=== PATIENT | female | born 1985 | race Caucasian/White ===

== ENCOUNTER 2016-09-09 23:52 | Emergency (ER) | payer BC ==
[~2016-09-09 23:52] MED LIST: ALBU8.5H3 INH; ALPR0.5T PO; AZIT250T6 PO; CITA10TA8 PO; HYDR-971 PO; LEVO150T PO; METO25TA9 PO; PRE NATAL; PROG100C7 PO
--- NOTE | 2016-09-10 00:03 | ED.ADGEN ---
Past History Past Medical History: Anxiety, Asthma, Fibromyalgia, Hyperthyroid, Other Past Surgical History: Other Alcohol Use: None Drug Use: None Adult General Chief Complaint Chief Complaint ".. I get Migraines.. but I ve had this one for two days.... and it has never really gone away...".." and I'm having a lot of neck and shoulder spasms from my fiber myalgia..." HPI HPI Patient is a 30 year old female who presents with above hx and complaints of increased complains of her baseline fibromyalgia muscle spasm. Patient complains that her migraine headache is been present for the past 2 days. Onset of headache with similar to prior migraines. Severity of the migraine is pain is similar to prior migraines, however it has been present for the past 2 days.. There is some relief of the headache with rest and a dark room. Patient does have some photophobia. Patient denies any trauma. Patient denies any travel. Patient denies any ill contacts. Patient denies any drug use. Patient denies any immunosuppression. Patient denies any fever or chills. Patient usually is able to control her migraine exacerbations with Tylenol or ibuprofen. If migraines are persistent muscle relaxants usually work. However patient states she used [id number] Tylenol ibuprofen and did take a muscle relaxant at home with minimal improvement. Patient in the past has successfully used trigger point injections at pain centers control the migraines frequency of exacerbations. Review of Systems Review of Systems Constitutional: Denies fever or chills [] Eyes: Denies change in visual acuity, redness, or eye pain [] HENT: Denies nasal congestion or sore throat [] Respiratory: Denies cough or shortness of breath [] Cardiovascular: No additional information not addressed in HPI [] GI: Denies abdominal pain, nausea, vomiting, bloody stools or diarrhea [] : Denies dysuria or hematuria [] Musculoskeletal: Denies back pain or joint pain [. Complaints of increase in fibromyalgia complaints Integument: Denies rash or skin lesions [] Neurologic: Complains of headache, denies focal weakness or sensory changes [] Endocrine: Denies polyuria or polydipsia [] Family History Family History Noncontributory Current Medications Current Medications Current Medications Medications (Trade) Dose Ordered Sig/[place] Start Time Stop Time Status Last Admin Dose Admin Diphenhydramine HCl (Benadryl) 50 mg 1X ONCE 09/10/16 01:00 09/10/16 01:01 DC 09/10/16 00:58 50 MG Diphenhydramine HCl 50 mg 50 mg STK-MED ONCE 09/10/16 00:46 09/10/16 00:57 DC Lactated Ringer's 1,000 ml @ As Directed STK-MED ONCE 09/10/16 00:46 09/10/16 00:57 DC Lactated Ringer's (Iv Lactated Ringers) 1,000 ml @ 1,000 mls/hr ONCE ONCE 09/10/16 00:56 09/10/16 01:55 DC 09/10/16 00:56 1,000 MLS/HR Morphine Sulfate (Morphine 10mg Syringe) 10 mg STK-MED ONCE 09/10/16 00:45 09/10/16 00:56 DC Ondansetron HCl (Zofran) 4 mg STK-MED ONCE 09/10/16 00:47 09/10/16 00:57 DC Ondansetron HCl 8 mg 8 mg 1X ONCE 09/10/16 01:00 09/10/16 01:01 DC 09/10/16 00:57 8 MG Orphenadrine Citrate 60 mg 60 mg 1X ONCE 09/10/16 01:00 09/10/16 01:01 DC 09/10/16 01:00 60 MG Sodium Chloride (Iv Sodium Chloride 0.9% 50ml) 50 ml @ As Directed STK-MED ONCE 09/10/16 00:46 09/10/16 00:57 DC Sumatriptan Succinate (Imitrex) 6 mg 1X ONCE 09/10/16 02:15 09/10/16 02:44 DC Valproic Acid (Depacon) 500 mg STK-MED ONCE 09/10/16 00:46 09/10/16 00:57 DC Valproic Acid/ Sodium Chloride (Depacon/Iv Sodium Chloride 0.9% 50ml) 55 ml @ 55 mls/hr Q8HRS 09/10/16 01:00 09/10/16 02:44 DC 09/10/16 01:00 55 MLS/HR Allergies Allergies Allergies Coded Allergies Type Severity Reaction Last Updated Verified Penicillins Allergy Unknown RASH 03/09/14 No iodine Allergy Unknown 8/21/16 Yes Physical Exam Physical Exam Constitutional: Moderate distress, non-toxic appearance. [] HENT: Normocephalic, atraumatic, bilateral external ears normal, oropharynx moist, no oral exudates, nose normal. []TMs clear Eyes: PERRLA, EOMI, conjunctiva normal, no discharge. Mild photophobia. Fundus benign. Neck: Normal range of motion, PT is some muscle tenderness, supple, no stridor. No midline tenderness Cardiovascular:Heart rate regular rhythm, no murmur [] Lungs & Thorax: Bilateral breath sounds equal at apexes on auscultation [] Abdomen: Bowel sounds normal, soft, no tenderness, no masses, no pulsatile masses. [] Skin: Warm, dry, no erythema, no rash. [] Back: No tenderness, no CVA tenderness. [] Extremities: No tenderness, no cyanosis, no clubbing, ROM intact, no edema. [] Neurologic: Alert and oriented X 3, normal motor function, normal sensory function, . DTRs +2 at brachial and patella. Air-conduction more than bone conduction. Some lateralization to the right. No Romberg. No drift. Distal vibratory 128 intact. Psychologic: Affect anxious, judgement normal, mood normal. [] Current Patient Data Vital Signs Vital Signs Date Time Temp Pulse Resp B/P Pulse Ox O2 Delivery O2 Flow Rate FiO2 09/10/16 00:30 20 100 Room Air 09/10/16 00:10 97.7 80 Lab Results Laboratory Tests Test 09/10/16 00:30 09/10/16 00:32 09/10/16 00:40 Urine Collection Type Unknown Urine Color Yellow Urine Clarity Hazy Urine pH 6.0 Urine Specific [place] 1.025 Urine Protein Neg (NEG-TRACE) Urine Glucose (UA) Negmg/dL (NEG) Urine Ketones (Stick) Negmg/dL (NEG) Urine Blood Trace (NEG) Urine Nitrite Neg (NEG) Urine Bilirubin Neg (NEG) Urine Urobilinogen Dipstick 0.2mg/dL (0.2 mg/dL) Urine Leukocyte Esterase Neg (NEG) Urine RBC 1-2/HPF (0-2) Urine WBC Occ/HPF (0-4) Urine Squamous Epithelial Cells Occ/LPF Urine Bacteria Few/HPF (0-FEW) Urine Mucus Slight/LPF Urine Opiates Screen Pos (NEG) Urine Methadone Screen Neg (NEG) Urine Barbiturates Neg (NEG) Urine Phencyclidine Screen Neg (NEG) Urine Amphetamine/Methamphetamine Neg (NEG) Urine Benzodiazepines Screen Neg (NEG) Urine Cocaine Screen Neg (NEG) Urine Cannabinoids Screen Neg (NEG) Urine Ethyl Alcohol Neg (NEG) POC Urine HCG, Qualitative hcg negative (Negative) White Blood Count 8.5x10^3/uL (4.0-11.0) Red Blood Count 4.75x10^6/uL (3.50-5.40) Hemoglobin 14.1g/dL (12.0-15.5) Hematocrit 42.7% (36.0-47.0) Mean Corpuscular Volume 90fL (79-100) Mean Corpuscular Hemoglobin 30pg (25-35) Mean Corpuscular Hemoglobin Concent 33g/dL (31-37) Red Cell Distribution Width 12.9% (11.5-14.5) Platelet Count 277x10^3/uL (140-400) Neutrophils (%) (Auto) 44% (31-73) Lymphocytes (%) (Auto) 46% (24-48) Monocytes (%) (Auto) 7% (0-9) Eosinophils (%) (Auto) 3% (0-3) Basophils (%) (Auto) 1% (0-3) Neutrophils # (Auto) 3.7x10^3uL (1.8-7.7) Lymphocytes # (Auto) 3.9x10^3/uL (1.0-4.8) Monocytes # (Auto) 0.6x10^3/uL (0.0-1.1) Eosinophils # (Auto) 0.2x10^3/uL (0.0-0.7) Basophils # (Auto) 0.1x10^3/uL (0.0-0.2) Erythrocyte Sedimentation Rate 44 (0-25) H Prothrombin Time 9.8SEC (9.4-11.4) Prothrombin Time INR 1.0 (0.9-1.1) PTT 25SEC (23-33) Sodium Level 142mmol/L (136-145) Potassium Level 3.6mmol/L (3.5-5.1) Chloride Level 103mmol/L (98-107) Carbon Dioxide Level 29mmol/L (21-32) Anion Gap 10 (6-14) Blood Urea Nitrogen 12mg/dL (7-20) Creatinine 0.8mg/dL (0.6-1.0) Estimated GFR (Cockcroft-Gault) 83.1 Glucose Level 115mg/dL (70-99) H Calcium Level 8.8mg/dL (8.5-10.1) Magnesium Level 2.0mg/dL (1.8-2.4) Total Bilirubin 0.3mg/dL (0.2-1.0) Direct Bilirubin 0.1mg/dL (0.0-0.2) Aspartate Amino Transferase (AST) 13U/L (15-37) L Alanine Aminotransferase (ALT) 23U/L (14-59) Alkaline Phosphatase 99U/L (46-116) Creatine Kinase 125U/L (26-192) Creatine Kinase MB (Mass) 1.0ng/mL (0.0-3.6) Creatine Kinase MB Relative Index 0.8% (0-4) Troponin I Quantitative < 0.017ng/mL (0-0.055) C-Reactive Protein 4.7mg/L (0-3.3) H Total Protein 8.0g/dL (6.4-8.2) Albumin 3.5g/dL (3.4-5.0) EKG EKG [] Radiology/Procedures Radiology/Procedures My interpretation of CT head shows no shift, mass, edema, bleed, or fracture. No findings of sinusitis. See formal report when available [] Course & Med Decision Making Course & Med Decision Making Pertinent Labs and Imaging studies reviewed. (See chart for details) Patient follow-up primary care. Patient to consider follow-up with pain center and possible repeat series of trigger point injections. Tylenol ibuprofen for pain. May take Vicoprofen for marked discomfort. Take Zofran 8 mg up 4 times a day for nausea and vomiting. Take Imitrex 100 mg at the beginning of a headache in the morning. Do not take more than 200 mg in a 24-hour period. Patient may take Flexeril 5 mg up 3 times a day for muscle spasms and tension. Must follow- up primary care. [] Final Impression Final Impression 1. Hx. of Migraine Headaches[] 2. History of fibromyalgia 3. History of trigeminal neuralgia Problems: Dragon Disclaimer Dragon Disclaimer This electronic medical record was generated, in whole or in part, using a voice recognition dictation system. OSMAN RODRIGUEZ MD Sep 10, 2016 00:03
[2016-09-10 00:10] VITALS: BP 159/105
[2016-09-10] MEDS ORDERED: MORPHINE SULFATE 10 MG/ML SYRINGE. SQ ONE (00:30)
[2016-09-10] MEDS ORDERED: IV RINGERS SOLUTION,LACTATED 1,000 ML IV SCH (00:30)
[2016-09-10] MEDS ORDERED: MORPHINE SULFATE 10 MG/ML SYRINGE. ONE (00:45)
[2016-09-10] MEDS ORDERED: IV NORMAL SALINE 50ML 50 ML ONE (00:46)
[2016-09-10] MEDS ORDERED: IV RINGERS SOLUTION,LACTATED 1,000 ML IV ONE ×2 (00:46→00:56)
[2016-09-10] MEDS ORDERED: VALPROATE SODIUM 500 MG/5 ML VIAL IV ONE (00:46)
[2016-09-10] MEDS ORDERED: DIPHENHYDRAMINE 50 MG/ML VIAL ONE (00:46)
[2016-09-10] MEDS ORDERED: ONDANSETRON PF 4 MG/2 ML VIAL. ONE (00:47)
[2016-09-10 00:55] LABS: BASO # 0.1 x10^3/uL (0.0-0.2); BASO % 1 % (0-3); EOS # 0.2 x10^3/uL (0.0-0.7); EOS % 3 % (0-3); HEMATOCRIT 42.7 % (36.0-47.0); HEMOGLOBIN 14.1 g/dL (12.0-15.5); LYMPH # 3.9 x10^3/uL (1.0-4.8); LYMPH % 46 % (24-48); MEAN CORPUSCULAR HEMOGLOBIN 30 pg (25-35); MEAN CORPUSCULAR HGB CONC 33 g/dL (31-37); MEAN CORPUSCULAR VOLUME 90 fL (79-100); MONO # 0.6 x10^3/uL (0.0-1.1); MONO % 7 % (0-9); NEUT # 3.7 x10^3uL (1.8-7.7); NEUT % 44 % (31-73); PLATELET COUNT 277 x10^3/uL (140-400); RED BLOOD COUNT 4.75 x10^6/uL (3.50-5.40); RED CELL DISTRIBUTION WIDTH 12.9 % (11.5-14.5); WHITE BLOOD COUNT 8.5 x10^3/uL (4.0-11.0)
[2016-09-10] MEDS ORDERED: DIPHENHYDRAMINE 50 MG/ML VIAL IVP ONE (01:00)
[2016-09-10] MEDS ORDERED: VALPROATE SODIUM 500 MG in IV NORMAL SALINE 50ML 50 ML IV SCH (01:00)
[2016-09-10] MEDS ORDERED: ORPHENADRINE CITRATE 60 MG/2 ML VIAL. IM ONE (01:00)
[2016-09-10] MEDS ORDERED: ONDANSETRON PF 4 MG/2 ML VIAL. IV ONE (01:00)
--- NOTE | 2016-09-10 01:00 | RAD ---
PROCEDURE CT head without contrast 09/10/2016. HISTORY Severe headache and right-sided blurry vision. TECHNIQUE Noncontrast images were performed. Exposure: One or more of the following individualized dose reduction techniques were utilized for this exam: 1. Automated exposure control. 2. Adjustment of the mA and/or kV according to patient size. 3. Use of iterative reconstruction technique. COMPARISON FINDINGS There is no apparent intracranial mass, hemorrhage or abnormal extra-axial fluid collection. No area of abnormal density is identified. The ventricles and basilar cisterns are normally positioned. No orbital abnormality is seen. The sinuses and mastoid air cells are clear. IMPRESSION No evidence of acute abnormality. Electronically signed by: Myron Vang (Sep 10, 2016 00:59:08)
[2016-09-10 01:08] LABS: BARBITURATES NEG (NEG); BENZODIAZEPINES NEG (NEG); CANNABINOIDS NEG (NEG); COCAINE NEG (NEG); METHADONE NEG (NEG); OPIATES POS (NEG); PHENCYCLIDINE NEG (NEG)
[2016-09-10 01:09] LABS: AMPHETAMINE/METHAMPHETAMINE NEG (NEG)
[2016-09-10 01:11] LABS: BILIRUBIN,URINE NEG (NEG); CLARITY,URINE HAZY; COLOR,URINE YELLOW; GLUCOSE,URINE NEG (NEG)
[2016-09-10 01:12] LABS: BACTERIA,URINE FEW /HPF (0-FEW); NITRITE,URINE NEG (NEG); SQUAMOUS EPITHELIAL CELL,UR OCC /LPF; UROBILINOGEN,URINE 0.2 mg/dL (0.2 mg/dL); WBC,URINE OCC /HPF (0-4)
[2016-09-10 01:16] LABS: ALBUMIN 3.5 g/dL (3.4-5.0); C REACTIVE PROTEIN 4.7 mg/L (0-3.3); CALCIUM 8.8 mg/dL (8.5-10.1); CREATININE 0.8 mg/dL (0.6-1.0); DIRECT BILIRUBIN 0.1 mg/dL (0.0-0.2); GFR 83.1; POTASSIUM 3.6 mmol/L (3.5-5.1); TOTAL BILIRUBIN 0.3 mg/dL (0.2-1.0)
[2016-09-10 02:00] LABS: SEDIMENTATION RATE 44 (0-25)
[2016-09-10] MEDS ORDERED: ONDA8TAB12 PO (02:04)
[2016-09-10] MEDS ORDERED: HYDR-79 PO (02:04)
[2016-09-10] MEDS ORDERED: SUMA100T3 PO (02:04)
[2016-09-10] MEDS ORDERED: CYCL5TAB PO (02:05)
[2016-09-10] MEDS ORDERED: SUMATRIPTAN 6 MG/0.5 ML VIAL. SQ ONE (02:15)
== END 2016-09-10 02:40 | disposition home or self-care (01) ==
LOC: ER 23:52
DX: R51 Headache (principal); G43.909 Migraine, unspecified, not intractable, without status migrainosus; M79.7 Fibromyalgia; G50.0 Trigeminal neuralgia; E03.9 Hypothyroidism, unspecified; J45.909 Unspecified asthma, uncomplicated; Z88.0 Allergy status to penicillin; Z91.041 Radiographic dye allergy status
CPT/HCPCS: 36415; 70450; 80048; 80076; 80305; 81001; 82553; 83735; 84443; 84484; 84703; 85027; 85610; 85651; 85730; 86140; 96365; 96372; 96375; 99285; J1200; J2270; J2360; J2405; J3490; J7120; 81025; G0481

== ENCOUNTER 2016-10-21 20:30 | Emergency (ER) | payer BC ==
[~2016-10-21] VITALS: Ht 170.2 cm; Wt 130.6 kg
[~2016-10-21 20:30] MED LIST changes: -ALBU8.5H3 INH; +ALBU8.5H8 INH; +CYCL5TAB PO; +HYDR-79 PO; +ONDA8TAB12 PO; +PROG100C15 PO; -PROG100C7 PO; +SUMA100T3 PO
--- NOTE | 2016-10-21 20:43 | ED.ADGEN ---
Past History Past Medical History: Anxiety, Asthma, Hypothyroid, Migraines, Other Past Surgical History: Other Alcohol Use: Occasionally Drug Use: None Adult General Chief Complaint Chief Complaint Productive cough HPI HPI Patient is a 31 year old female who presents with productive cough. She states it started about 2-3 days ago she feel short of breath and has a cough is bringing up green-black sputum. She states she's been having fevers and chills at home. She's tried her albuterol inhaler yesterday and today only once though. She does have a history of asthma. She does Vape. Review of Systems Review of Systems Constitutional: Denies fever or chills [] Eyes: Denies change in visual acuity, redness, or eye pain [] HENT: Denies nasal congestion or sore throat [] Respiratory: Positive for cough and shortness of breath. Cardiovascular: No additional information not addressed in HPI [] GI: Denies abdominal pain, nausea, vomiting, bloody stools or diarrhea [] : Denies dysuria or hematuria [] Musculoskeletal: Denies back pain or joint pain [] Integument: Denies rash or skin lesions [] Neurologic: Denies headache, focal weakness or sensory changes [] Endocrine: Denies polyuria or polydipsia [] Current Medications Current Medications Current Medications Medications (Trade) Dose Ordered Sig/[facility] Start Time Stop Time Status Last Admin Dose Admin Acetaminophen/ Codeine Phosphate (Tylenol #3) 1 tab 1X ONCE 10/21/16 23:00 10/21/16 23:01 UNV Albuterol/ Ipratropium (Duoneb) 3 ml 1X ONCE 10/21/16 21:15 10/21/16 21:16 DC 10/21/16 21:13 3 ML Azithromycin (Zithromax) 500 mg 1X ONCE 10/21/16 23:00 10/21/16 23:01 UNV Sodium Chloride 1,000 ml @ 1,000 mls/hr 1X ONCE 10/21/16 21:00 10/21/16 21:59 DC 10/21/16 21:37 1,000 MLS/HR Allergies Allergies Allergies Coded Allergies Type Severity Reaction Last Updated Verified Penicillins Allergy Unknown RASH 03/09/14 No iodine Allergy Unknown 01/09/16 Yes Physical Exam Physical Exam Constitutional: Well developed, well nourished, no acute distress, non-toxic appearance. [] HENT: Normocephalic, atraumatic, bilateral external ears normal, oropharynx moist, no oral exudates, nose normal. [] Eyes: PERRLA, EOMI, conjunctiva normal, no discharge. [] Neck: Normal range of motion, no tenderness, supple, no stridor. [] Cardiovascular:Heart rate regular rhythm, no murmur [] Lungs & Thorax: Decreased breath sounds at the bases with mild expiratory wheezes Abdomen: Bowel sounds normal, soft, no tenderness, no masses, no pulsatile masses. [] Skin: Warm, dry, no erythema, no rash. [] Back: No tenderness, no CVA tenderness. [] Extremities: No tenderness, no cyanosis, no clubbing, ROM intact, no edema. [] Neurologic: Alert and oriented X 3, normal motor function, normal sensory function, no focal deficits noted. [] Psychologic: Affect normal, judgement normal, mood normal. [] Current Patient Data Vital Signs Vital Signs Date Time Temp Pulse Resp B/P (MAP) Pulse Ox O2 Delivery O2 Flow Rate FiO2 10/21/16 21:14 96 Room Air 10/21/16 20:45 98.8 120 18 Lab Results Laboratory Tests Test 10/21/16 21:07 10/21/16 21:35 POC Urine HCG, Qualitative hcg negative (Negative) White Blood Count 5.8 x10^3/uL (4.0-11.0) Red Blood Count 4.30 x10^6/uL (3.50-5.40) Hemoglobin 12.8 g/dL (12.0-15.5) Hematocrit 37.4 % (36.0-47.0) Mean Corpuscular Volume 87 fL (79-100) Mean Corpuscular Hemoglobin 30 pg (25-35) Mean Corpuscular Hemoglobin Concent 34 g/dL (31-37) Red Cell Distribution Width 13.3 % (11.5-14.5) Platelet Count 183 x10^3/uL (140-400) Neutrophils (%) (Auto) 44 % (31-73) Lymphocytes (%) (Auto) 41 % (24-48) Monocytes (%) (Auto) 14 % (0-9) H Eosinophils (%) (Auto) 1 % (0-3) Basophils (%) (Auto) 1 % (0-3) Neutrophils # (Auto) 2.6 x10^3uL (1.8-7.7) Lymphocytes # (Auto) 2.4 x10^3/uL (1.0-4.8) Monocytes # (Auto) 0.8 x10^3/uL (0.0-1.1) Eosinophils # (Auto) 0.0 x10^3/uL (0.0-0.7) Basophils # (Auto) 0.0 x10^3/uL (0.0-0.2) Sodium Level 140 mmol/L (136-145) Potassium Level 3.4 mmol/L (3.5-5.1) L Chloride Level 105 mmol/L (98-107) Carbon Dioxide Level 26 mmol/L (21-32) Anion Gap 9 (6-14) Blood Urea Nitrogen 17 mg/dL (7-20) Creatinine 1.0 mg/dL (0.6-1.0) Estimated GFR (Cockcroft-Gault) 63.9 BUN/Creatinine Ratio 17 (6-20) Glucose Level 109 mg/dL (70-99) H Calcium Level 8.2 mg/dL (8.5-10.1) L Total Bilirubin 0.2 mg/dL (0.2-1.0) Aspartate Amino Transferase (AST) 15 U/L (15-37) Alanine Aminotransferase (ALT) 21 U/L (14-59) Alkaline Phosphatase 83 U/L (46-116) Total Protein 7.4 g/dL (6.4-8.2) Albumin 3.2 g/dL (3.4-5.0) L Albumin/Globulin Ratio 0.8 (1.0-1.7) L EKG EKG [] Radiology/Procedures Radiology/Procedures Two-view chest x-ray did not show any focal consolidations, bony abnormalities, pneumothorax, as interpreted by me. Course & Med Decision Making Course & Med Decision Making Pertinent Labs and Imaging studies reviewed. (See chart for details) She was tachycardic upon arrival her labs are nonacute. Her tachycardia improved with IV fluids. Chest x-ray negative. This is likely bronchitis or viral infection. Will discharge with azithromycin Z-Andrew, Tylenol 3's when necessary cough. Return precautions given patient is agreeable to the plan and being discharged in stable condition this time. Final Impression Final Impression Bronchitis Problems: Dragon Disclaimer Dragon Disclaimer This electronic medical record was generated, in whole or in part, using a voice recognition dictation system. DIANNA MATOS MD Oct 21, 2016 20:42
[2016-10-21 20:45] VITALS: BP 151/83
[2016-10-21] MEDS ORDERED: IV NORMAL SALINE 1,000ML 1,000 ML IV ONE (21:00)
[2016-10-21] MEDS ORDERED: IPRATRPIUM/ALBUTEROL 0.5/2.5MG 3 ML NEBU. NEB ONE (21:15)
[2016-10-21 21:59] LABS: BASO % 1 % (0-3); EOS % 1 % (0-3); HEMATOCRIT 37.4 % (36.0-47.0); HEMOGLOBIN 12.8 g/dL (12.0-15.5); LYMPH # 2.4 x10^3/uL (1.0-4.8); LYMPH % 41 % (24-48); MEAN CORPUSCULAR HEMOGLOBIN 30 pg (25-35); MEAN CORPUSCULAR HGB CONC 34 g/dL (31-37); MEAN CORPUSCULAR VOLUME 87 fL (79-100); MONO # 0.8 x10^3/uL (0.0-1.1); MONO % 14 % (0-9); NEUT # 2.6 x10^3uL (1.8-7.7); NEUT % 44 % (31-73); PLATELET COUNT 183 x10^3/uL (140-400); RED CELL DISTRIBUTION WIDTH 13.3 % (11.5-14.5); WHITE BLOOD COUNT 5.8 x10^3/uL (4.0-11.0)
[2016-10-21 22:11] LABS: ALBUMIN 3.2 g/dL (3.4-5.0); ALBUMIN/GLOBULIN RATIO 0.8 (1.0-1.7); CALCIUM 8.2 mg/dL (8.5-10.1); GFR 63.9; POTASSIUM 3.4 mmol/L (3.5-5.1); TOTAL BILIRUBIN 0.2 mg/dL (0.2-1.0); TOTAL PROTEIN 7.4 g/dL (6.4-8.2)
[2016-10-21] MEDS ORDERED: AZIT250T6 PO (22:48)
[2016-10-21] MEDS ORDERED: ACET-704 PO (22:48)
[2016-10-21] MEDS ORDERED: PRED50TA PO (22:58)
[2016-10-21] MEDS ORDERED: AZITHROMYCIN 250 MG TABLET. PO ONE (23:00)
[2016-10-21] MEDS ORDERED: ACETAMINOPHEN/CODEINE 300/30MG TABLET PO ONE (23:00)
[2016-10-21] MEDS ORDERED: ACETAMINOPHEN/CODEINE 300/30MG 4TABLET STARTPACK. PO ONE (23:00)
[2016-10-21] MEDS ORDERED: predniSONE 10 MG TABLET PO ONE (23:00)
[2016-10-21] MEDS ORDERED: predniSONE 20 MG TABLET ONE (23:03)
--- NOTE | 2016-10-22 07:39 | RAD ---
Indication: Cough and shortness of air. Time of exam 2143 hours. No prior studies are available for comparison. The heart size is normal. There is patchy airspace infiltrate identified in the left upper lobe suggestive of pneumonia. No other infiltrates are detected. No effusion or pneumothorax is seen. Impression: Patchy left upper lobe pneumonia.
== END 2016-10-21 23:10 | disposition home or self-care (01) ==
LOC: ER 20:30
DX: J40 Bronchitis, not specified as acute or chronic (principal); E03.9 Hypothyroidism, unspecified; J45.909 Unspecified asthma, uncomplicated; G43.909 Migraine, unspecified, not intractable, without status migrainosus; Z88.1 Allergy status to other antibiotic agents; Z91.041 Radiographic dye allergy status
CPT/HCPCS: 36415; 71020; 80053; 81025; 85027; 87040; 94640; 96360; 99285; J0456; J7512; J7620; J7030

== ENCOUNTER 2016-12-08 13:32 | Emergency (ER) | payer BC, OTHER ==
[~2016-12-08] VITALS: Ht 170.2 cm; Wt 134.7 kg
[~2016-12-08 13:32] MED LIST changes: +ACET-704 PO; +PRED50TA PO
[2016-12-08] MEDS ORDERED: IV NORMAL SALINE 1,000ML 1,000 ML IV SCH (14:20)
--- NOTE | 2016-12-08 14:37 | EKG ---
[address] [address] Test Date: 2016-12-08 Test Time: 14:24:54 Pat Name: RIZWAN CALDWELL Department: Room: Gender: F [employer]: : [id number] Requested By: DEVORAH GIFFORD Order Number: [id number] Reading MD: Morales Greene Measurements Intervals [place] Rate: 72 P: 48 FL: 128 QRS: 8 QRSD: 96 T: 15 QT: 384 QTc: 422 Interpretive Statements SINUS RHYTHM INCOMPLETE RIGHT BUNDLE BRANCH BLOCK NON SPECIFIC T ABNORMALITY Electronically Signed On 12-17-2016 14:50:41 CDT by Morales Greene
[2016-12-08 14:41] LABS: BASO % 0 % (0-3); EOS # 0.1 x10^3/uL (0.0-0.7); EOS % 1 % (0-3); HEMATOCRIT 38.1 % (36.0-47.0); HEMOGLOBIN 13.1 g/dL (12.0-15.5); LYMPH # 2.2 x10^3/uL (1.0-4.8); LYMPH % 23 % (24-48); MEAN CORPUSCULAR HEMOGLOBIN 30 pg (25-35); MEAN CORPUSCULAR HGB CONC 34 g/dL (31-37); MEAN CORPUSCULAR VOLUME 88 fL (79-100); MONO # 0.6 x10^3/uL (0.0-1.1); MONO % 7 % (0-9); NEUT # 6.4 x10^3uL (1.8-7.7); NEUT % 68 % (31-73); PLATELET COUNT 228 x10^3/uL (140-400); RED BLOOD COUNT 4.32 x10^6/uL (3.50-5.40); RED CELL DISTRIBUTION WIDTH 13.2 % (11.5-14.5); WHITE BLOOD COUNT 9.4 x10^3/uL (4.0-11.0)
[2016-12-08 14:45] LABS: ALBUMIN 3.2 g/dL (3.4-5.0); ALBUMIN/GLOBULIN RATIO 0.7 (1.0-1.7); CALCIUM 8.8 mg/dL (8.5-10.1); CREATININE 0.7 mg/dL (0.6-1.0); GFR 96.4; POTASSIUM 3.6 mmol/L (3.5-5.1); TOTAL BILIRUBIN 0.2 mg/dL (0.2-1.0); TOTAL PROTEIN 7.7 g/dL (6.4-8.2)
[2016-12-08 15:41] LABS: AMPHETAMINE/METHAMPHETAMINE NEG (NEG); BARBITURATES NEG (NEG); BENZODIAZEPINES NEG (NEG); CANNABINOIDS NEG (NEG); COCAINE NEG (NEG); METHADONE NEG (NEG); OPIATES NEG (NEG); PHENCYCLIDINE NEG (NEG)
[2016-12-08 15:46] LABS: BACTERIA,URINE FEW /HPF (0-FEW); BILIRUBIN,URINE NEG (NEG); CLARITY,URINE CLEAR; COLOR,URINE YELLOW; GLUCOSE,URINE NEG (NEG); NITRITE,URINE NEG (NEG); SQUAMOUS EPITHELIAL CELL,UR MOD /LPF; UROBILINOGEN,URINE 0.2 mg/dL (0.2 mg/dL); WBC,URINE OCC /HPF (0-4)
[2016-12-08] MEDS ORDERED: IV NORMAL SALINE 1,000ML 1,000 ML IV ONE (16:00)
[2016-12-08] MEDS ORDERED: CEPHALEXIN 250 MG CAPSULE PO SCH (16:15)
[2016-12-08] MEDS ORDERED: CEPH-264 PO (16:17)
[2016-12-08] MEDS ORDERED: ONDA4TAB7 PO (16:17)
[2016-12-08] MEDS ORDERED: DOCU-109 PO (16:17)
[2016-12-08] MEDS ORDERED: ONDANSETRON PF 4 MG/2 ML VIAL. ONE (16:21)
[2016-12-08] MEDS ORDERED: ONDANSETRON ODT 4 MG TAB.RAPDIS PO ONE (16:45)
[2016-12-08 16:49] VITALS: BP 136/76
--- NOTE | 2016-12-08 18:48 | ED.ADGEN ---
Past History Past Medical History: Anxiety, Asthma Past Surgical History: Other Alcohol Use: None Drug Use: None Adult General HPI HPI Patient is a 31-year-old woman, history of anxiety, depression, right bundle- branch block, hypothyroidism after ablation, who takes Synthroid, who is 10 weeks and managed by the high risk clinic at , who presents the emergency department with a complaint of palpitations. Patient states that she' s been experiencing "fluttering" over the past 2 days, states that this often occur when she is dehydrated, or when "my thyroid is out of whack". 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 She states she has been experiencing nausea consistent with previous pregnancies, and difficulty eating due to the symptoms. She denies any syncope, any shortness of breath, any vomiting, any focal weakness, numbness, tingling, discharge or drainage from the vagina, any vaginal bleeding, any abdominal pain. She states she's been taking all of her medications including vitamins and Synthroid as directed. Review of Systems Review of Systems Constitutional: Denies fever or chills [] Eyes: Denies change in visual acuity, redness, or eye pain [] HENT: Denies nasal congestion or sore throat [] Respiratory: Denies cough or shortness of breath [] Cardiovascular: No additional information not addressed in HPI [], positive for palpitations. GI: Denies abdominal pain, vomiting, bloody stools or diarrhea. Positive for nausea. [] : Denies dysuria or hematuria [] Musculoskeletal: Denies back pain or joint pain [] Integument: Denies rash or skin lesions [] Neurologic: Denies headache, focal weakness or sensory changes [] Endocrine: Denies polyuria or polydipsia [] Current Medications Current Medications Current Medications Medications (Trade) Dose Ordered Sig/Seamus Start Time Stop Time Status Last Admin Dose Admin Cephalexin HCl (Keflex) 500 mg 1X 12/08/16 16:15 12/08/16 16:51 DC 12/08/16 16:46 500 MG Ondansetron HCl (Zofran Odt) 4 mg 1X ONCE 12/08/16 16:45 12/08/16 16:46 DC 12/08/16 16:46 4 MG Ondansetron HCl (Zofran) 4 mg STK-MED ONCE 12/08/16 16:21 12/08/16 16:22 DC Sodium Chloride 1,000 ml @ 1,000 mls/hr 1X ONCE 12/08/16 16:00 12/08/16 16:51 DC 12/08/16 15:46 1,000 MLS/HR Allergies Allergies Allergies Coded Allergies Type Severity Reaction Last Updated Verified Penicillins Allergy Unknown RASH 03/09/14 No iodine Allergy Unknown 01/09/16 Yes Physical Exam Physical Exam Constitutional: Well developed, well nourished, no acute distress, non-toxic appearance. [] HENT: Normocephalic, atraumatic, bilateral external ears normal, oropharynx moist, no oral exudates, nose normal. [] Eyes: PERRLA, EOMI, conjunctiva normal, no discharge. [] Neck: Normal range of motion, no tenderness, supple, no stridor. [] Cardiovascular:Heart rate regular rhythm, no murmur, S1, S2, no rubs or gallops. [] Lungs & Thorax: Bilateral breath sounds clear to auscultation, no wheezing, rhonchi, rales. No chest or crepitus or tenderness. [] Abdomen: Bowel sounds normal, soft, no tenderness, no rebound, rigidity, no guarding, no masses, no pulsatile masses. [] Skin: Warm, dry, no erythema, no rash. [] Back: No tenderness, no CVA tenderness. [] Extremities: No tenderness, no cyanosis, no clubbing, ROM intact, no edema. Negative Homans sign. [] Neurologic: Alert and oriented X 3, normal motor function, normal sensory function, no focal deficits noted. [] Psychologic: Affect normal, judgement normal, mood normal. [] heart tones in the 180s by Doppler Current Patient Data Vital Signs Vital Signs Date Time Temp Pulse Resp B/P (MAP) Pulse Ox O2 Delivery O2 Flow Rate FiO2 12/08/16 16:49 72 18 136/76 (96) 100 Room Air 12/08/16 14:45 98.4 Lab Results Laboratory Tests Test 12/08/16 14:20 12/08/16 15:10 White Blood Count 9.4 x10^3/uL (4.0-11.0) Red Blood Count 4.32 x10^6/uL (3.50-5.40) Hemoglobin 13.1 g/dL (12.0-15.5) Hematocrit 38.1 % (36.0-47.0) Mean Corpuscular Volume 88 fL (79-100) Mean Corpuscular Hemoglobin 30 pg (25-35) Mean Corpuscular Hemoglobin Concent 34 g/dL (31-37) Red Cell Distribution Width 13.2 % (11.5-14.5) Platelet Count 228 x10^3/uL (140-400) Neutrophils (%) (Auto) 68 % (31-73) Lymphocytes (%) (Auto) 23 % (24-48) L Monocytes (%) (Auto) 7 % (0-9) Eosinophils (%) (Auto) 1 % (0-3) Basophils (%) (Auto) 0 % (0-3) Neutrophils # (Auto) 6.4 x10^3uL (1.8-7.7) Lymphocytes # (Auto) 2.2 x10^3/uL (1.0-4.8) Monocytes # (Auto) 0.6 x10^3/uL (0.0-1.1) Eosinophils # (Auto) 0.1 x10^3/uL (0.0-0.7) Basophils # (Auto) 0.0 x10^3/uL (0.0-0.2) Sodium Level 134 mmol/L (136-145) L Potassium Level 3.6 mmol/L (3.5-5.1) Chloride Level 101 mmol/L (98-107) Carbon Dioxide Level 29 mmol/L (21-32) Anion Gap 4 (6-14) L Blood Urea Nitrogen 10 mg/dL (7-20) Creatinine 0.7 mg/dL (0.6-1.0) Estimated GFR (Cockcroft-Gault) 96.4 BUN/Creatinine Ratio 14 (6-20) Glucose Level 90 mg/dL (70-99) Calcium Level 8.8 mg/dL (8.5-10.1) Total Bilirubin 0.2 mg/dL (0.2-1.0) Aspartate Amino Transferase (AST) 16 U/L (15-37) Alanine Aminotransferase (ALT) 23 U/L (14-59) Alkaline Phosphatase 76 U/L (46-116) Total Protein 7.7 g/dL (6.4-8.2) Albumin 3.2 g/dL (3.4-5.0) L Albumin/Globulin Ratio 0.7 (1.0-1.7) L Urine Collection Type Unknown Urine Color Yellow Urine Clarity Clear Urine pH 7.0 Urine Specific Sherwood 1.015 Urine Protein Neg (NEG-TRACE) Urine Glucose (UA) Neg mg/dL (NEG) Urine Ketones (Stick) Neg mg/dL (NEG) Urine Blood Trace (NEG) Urine Nitrite Neg (NEG) Urine Bilirubin Neg (NEG) Urine Urobilinogen Dipstick 0.2 mg/dL (0.2 mg/dL) Urine Leukocyte Esterase Neg (NEG) Urine RBC 3-5 /HPF (0-2) Urine WBC Occ /HPF (0-4) Urine Squamous Epithelial Cells Mod /LPF Urine Bacteria Few /HPF (0-FEW) Urine Opiates Screen Neg (NEG) Urine Methadone Screen Neg (NEG) Urine Barbiturates Neg (NEG) Urine Phencyclidine Screen Neg (NEG) Urine Amphetamine/Methamphetamine Neg (NEG) Urine Benzodiazepines Screen Neg (NEG) Urine Cocaine Screen Neg (NEG) Urine Cannabinoids Screen Neg (NEG) Urine Ethyl Alcohol Neg (NEG) EKG EKG EC: Sinus rhythm, heart rate 72 beats minute, incomplete right bundle- branch block noted, QTc of 422, OK 120, QRS of 96, aside from bundle-branch block, no abnormality is identified. As interpreted by me. [] Radiology/Procedures Radiology/Procedures [] Course & Med Decision Making Course & Med Decision Making Patient in sinus rhythm on the monitor, resting currently, receiving IV fluids, laboratory studies also obtained. Discussed with patient that as a TSH is a send out test that will not return until tomorrow, at this time we will hydrate her, and reassess. I would not be making adjustments to her Synthroid in the ED. Patient states that she understands, is agreeable with plan for basic laboratory studies, monitoring I fluids in the ED. Patient received 2 L normal saline in the ED, on reevaluation she states that she is feeling much better, and that the palpitations have resolved. No electrolyte abnormalities were identified. Patient's urinalysis was noted to have bacteria, no nitrates. I did discuss these findings with the patient, due to her high risk status, will treat for bacteriuria in , patient states that she has tolerated Keflex previously without issue. Additionally, patient was given Zofran in the ED, and resolution of her nausea, and was also given prescription for Zofran. She has taken Zofran previously during her pregnancies without issue. Patient instructed to contact her high risk clinic to schedule prompt follow-up, also given clear and detailed return instructions with which she voiced understanding and agreement. Patient discharged home in stable condition with plan as above, to continue all medications including her vitamins and Synthroid as directed, and to return to the ED for concerning symptoms as discussed. Final Impression Final Impression [] Problems: Dragon Disclaimer Dragon Disclaimer This electronic medical record was generated, in whole or in part, using a voice recognition dictation system. Departure: Impression: Primary Impression: Palpitations Disposition: 01 HOME, SELF-CARE Condition: IMPROVED Scripts Cephalexin (KEFLEX) 500 Mg Capsule 1 CAP PO BID, #13 CAP Prov: DEVORAH GIFFORD DO 12/08/16 Docusate Sodium (COLACE) 100 Mg Capsule 1 CAP PO BID Y for CONSTIPATION, #20 CAP Prov: DEVORAH GIFFORD DO 12/08/16 Ondansetron Hcl (ZOFRAN) 4 Mg Tablet 4 MG PO PRN Q8HRS Y for NAUSEA, #14 Prov: DEVORAH GIFFORD DO 12/08/16 DEVORAH GIFFORD DO Dec 08, 2016 18:48
== END 2016-12-08 16:50 | disposition home or self-care (01) ==
LOC: ER 13:32
DX: O26.891 Other specified pregnancy related conditions, first trimester (principal); O99.511 Diseases of the respiratory system complicating pregnancy, first trimester; F41.9 Anxiety disorder, unspecified; I45.10 Unspecified right bundle-branch block; Z3A.10 10 weeks gestation of pregnancy; Z79.899 Other long term (current) drug therapy; Z88.0 Allergy status to penicillin; Z91.041 Radiographic dye allergy status
CPT/HCPCS: 36415; 80053; 80307; 80320; 81001; 85027; 93005; 96360; 96361; 99285; Q0162; 80305; G0481; G0479; J7030

== ENCOUNTER 2017-03-25 12:55 | Emergency (ER) | payer OTHER ==
[~2017-03-25] VITALS: Ht 170.2 cm; Wt 136.1 kg
[~2017-03-25 12:55] MED LIST changes: +CEPH-264 PO; +DOCU-109 PO; +METO-239 PO; -METO25TA9 PO; +ONDA4TAB7 PO
[2017-03-25 12:58] VITALS: BP 136/58
[2017-03-25] MEDS ORDERED: ALBUTEROL SULFATE 2.5 MG/3 ML NEBU. NEB ONE (13:15)
[2017-03-25] MEDS ORDERED: METH4TAB2 PO (13:51)
--- NOTE | 2017-03-25 13:52 | PHYS DOC ---
Past History Past Medical History: Anxiety, Asthma, Other Past Surgical History: Other Alcohol Use: None Drug Use: None Adult General Chief Complaint Chief Complaint: COUGH HPI HPI Patient is a 31 year old female who presents with complaint of cough for the past 3 days. Patient states that she has had multiple episodes of coughing that has resulted in occasional episodes of posttussive emesis. Patient states that she has a daughter who has recently been diagnosed with croup. She states that the daughter symptoms have been improving, and the patient started having symptoms shortly afterward. The patient denies any measured fevers at home and has not had productive cough. Patient has had history of bronchitis and states that her symptoms feel very similar. Patient is currently 6 months and has been receiving care. Patient states that she used albuterol at home with minimal relief in symptoms. Review of Systems Review of Systems Constitutional: Denies fever or chills [] Eyes: Denies change in visual acuity, redness, or eye pain [] HENT: Denies nasal congestion or sore throat [] Respiratory: Cough, posttussive emesis[] Cardiovascular: Denies substernal chest pain[] GI: Denies abdominal pain, nausea, vomiting, bloody stools or diarrhea [] : Denies dysuria or hematuria [] Musculoskeletal: Denies back pain or joint pain [] Integument: Denies rash or skin lesions [] Neurologic: Denies headache, focal weakness or sensory changes [] Current Medications Current Medications Current Medications Medications (Trade) Dose Ordered Sig/Seamus Start Time Stop Time Status Last Admin Dose Admin Albuterol Sulfate (Ventolin) 5 mg 1X ONCE 03/25/17 13:15 03/25/17 13:18 DC 03/25/17 13:12 5 MG Allergies Allergies Allergies Coded Allergies Type Severity Reaction Last Updated Verified Penicillins Allergy Unknown RASH 03/09/14 No iodine Allergy Unknown 01/09/16 Yes Physical Exam Physical Exam Constitutional: Alert, afebrile, appears in mild to moderate discomfort. [] HENT: Normocephalic, atraumatic, bilateral external ears normal, oropharynx moist, no oral exudates, nose normal. [] Eyes: PERRLA, EOMI, conjunctiva normal, no discharge. [] Neck: Normal range of motion, no tenderness, supple, no stridor. [] Cardiovascular:Heart rate regular rhythm, no murmur [] Lungs & Thorax: Moderate restriction of air movement bilaterally, faint extremity wheezes bilaterally, rales[] Abdomen: Bowel sounds normal, soft, no tenderness, no masses, no pulsatile masses. [] Skin: Warm, dry, no erythema, no rash. [] Back: No tenderness, no CVA tenderness. [] Extremities: No tenderness, no cyanosis, no clubbing, ROM intact, no edema. [] Neurologic: Alert and oriented X 3, normal motor function, normal sensory function, no focal deficits noted. [] Current Patient Data Vital Signs Vital Signs Date Time Temp Pulse Resp B/P (MAP) Pulse Ox O2 Delivery O2 Flow Rate FiO2 03/25/17 13:14 99 Room Air 03/25/17 12:58 98.4 100 20 Lab Results None performed EKG EKG Not performed[] Radiology/Procedures Radiology/Procedures Not performed[] Course & Med Decision Making Course & Med Decision Making Pertinent Labs and Imaging studies reviewed. (See chart for details) Patient was given 2 albuterol nebulized treatments in the emergency department. On reevaluation, patient's breath sounds have improved and patient states that she is feeling better. The patient was started on Medrol Dosepak. Advised to continue on albuterol 2-4 puffs per inhaler every 4 hours or 1-2 unit doses of nebulizer treatment every 4 hours as needed for wheezing. Advise follow-up in one to 2 days a primary doctor and return to emergency department for any worsening symptoms. Patient voiced understanding and in agreement with treatment plan. Dragon Disclaimer Dragon Disclaimer This chart was dictated in whole or in part using Voice Recognition software in a busy, high-work load, and often noisy Emergency Department environment. It may contain unintended and wholly unrecognized errors or omissions. Departure Departure: Impression: Primary Impression: Bronchitis Disposition: 01 HOME, SELF-CARE Condition: IMPROVED Referrals: CADENCE MATTHEWS DO (PCP) Patient Instructions: Acute Bronchitis Additional Instructions: Follow-up with your primary doctor in 1-2 days for reevaluation. Return to the emergency department for any worsening symptoms. Scripts Methylprednisolone (MEDROL) 4 Mg Tab.ds.pk 1 PKG PO UD, #1 PKG Prov: FLORINDA LUONG MD 03/25/17 FLORINDA LUONG MD Mar 25, 2017 13:52
== END 2017-03-25 13:59 | disposition home or self-care (01) ==
LOC: ER 12:55
DX: O99.512 Diseases of the respiratory system complicating pregnancy, second trimester (principal); J40 Bronchitis, not specified as acute or chronic; J45.909 Unspecified asthma, uncomplicated; Z3A.24 24 weeks gestation of pregnancy; Z88.0 Allergy status to penicillin; Z91.041 Radiographic dye allergy status
CPT/HCPCS: 94640; 99284; J7613

== ENCOUNTER 2017-04-27 17:30 | Emergency (ER) | payer OTHER ==
[~2017-04-27] VITALS: Ht 170.2 cm; Wt 139.7 kg
[~2017-04-27 17:30] MED LIST changes: +METH4TAB2 PO
[2017-04-27] MEDS ORDERED: LABETALOL 20 MG/4 ML DISP.SYRIN. ONE (17:54)
[2017-04-27 18:00] LABS: BASO % 0 % (0-3); EOS # 0.1 x10^3/uL (0.0-0.7); EOS % 1 % (0-3); HEMATOCRIT 35.6 % (36.0-47.0); LYMPH % 23 % (24-48); MEAN CORPUSCULAR HEMOGLOBIN 30 pg (25-35); MEAN CORPUSCULAR HGB CONC 34 g/dL (31-37); MEAN CORPUSCULAR VOLUME 88 fL (79-100); MONO # 0.6 x10^3/uL (0.0-1.1); MONO % 6 % (0-9); NEUT % 69 % (31-73); PLATELET COUNT 225 x10^3/uL (140-400); RED BLOOD COUNT 4.05 x10^6/uL (3.50-5.40); RED CELL DISTRIBUTION WIDTH 13.8 % (11.5-14.5); WHITE BLOOD COUNT 8.6 x10^3/uL (4.0-11.0)
[2017-04-27] MEDS ORDERED: MAGNESIUM SULFATE 1GM 100 ML IV ONE (18:00)
[2017-04-27] MEDS ORDERED: LABETALOL 100 MG/20 ML VIAL. IV ONE ×2 (18:00→18:45)
--- NOTE | 2017-04-27 18:01 | PHYS DOC ---
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 She does have associated nausea. She has had borderline hypertension during this . She does have a right bundle-branch block for which she takes metoprolol. She has a history of preeclampsia with her previous . Margarito states that she has been feeling less movement over the past 2 days however she still feels that her baby is moving at least 6 times per hour. She denies bleeding, abnormal discharge, and contractions Review of Systems Review of Systems Constitutional: Denies fever or chills [] Eyes: Negative except history of present illness HENT: Denies nasal congestion or sore throat [] Respiratory: Denies cough or shortness of breath [] Cardiovascular: No additional information not addressed in HPI [] GI: Negative except history of present illness : Denies dysuria or hematuria [] Musculoskeletal: Denies back pain or joint pain [] Integument: Denies rash or skin lesions [] Neurologic: Denies focal weakness or sensory changes [] Endocrine: Denies polyuria or polydipsia [] All other systems were reviewed and found to be within normal limits, except as documented in this note. Family History Family History No pertinent family history was reported Current Medications Current Medications Current Medications Medications (Trade) Dose Ordered Sig/Seamus Start Time Stop Time Status Last Admin Dose Admin Labetalol HCl (Normodyne) 10 mg 1X ONCE 04/27/17 18:00 04/27/17 18:01 Magnesium Sulfate/ Dextrose 100 ml @ 100 mls/hr 1X ONCE 04/27/17 18:00 04/27/17 18:59 UNV Allergies Allergies Allergies Coded Allergies Type Severity Reaction Last Updated Verified Penicillins Allergy Unknown RASH 04/27/17 No iodine Allergy Unknown 04/27/17 Yes Physical Exam Physical Exam Constitutional: Well developed, well nourished, non-toxic appearance. [] Mild to moderate distress noted HENT: atraumatic, bilateral external ears normal, oropharynx moist, no oral exudates, nose normal. [] Eyes: EOMI, conjunctiva normal, no discharge. Neck: Normal range of motion, no tenderness, supple, no stridor. [] Cardiovascular:Heart rate regular rhythm, Lungs & Thorax: Bilateral breath sounds clear to auscultation [] Abdomen: Bowel sounds normal, soft, no masses, no pulsatile masses. Right upper quadrant tenderness to palpation Skin: Warm, dry, no erythema, no rash. [] Back: No tenderness, no CVA tenderness. Extremities: No tenderness, no cyanosis, no clubbing, ROM intact, no edema. [] Trace edema noted in lower extremity's bilaterally Neurologic: Alert and oriented X 3, normal motor function, normal sensory function Psychologic: Affect normal, judgement normal, mood normal. heart tones: 175 Current Patient Data Vital Signs Vital Signs Date Time Temp Pulse Resp B/P (MAP) Pulse Ox O2 Delivery O2 Flow Rate FiO2 04/27/17 17:43 97.9 104 16 98 Room Air Lab Results Laboratory Tests Test 04/27/17 17:43 White Blood Count 8.6 x10^3/uL (4.0-11.0) Red Blood Count 4.05 x10^6/uL (3.50-5.40) Hemoglobin 12.0 g/dL (12.0-15.5) Hematocrit 35.6 % (36.0-47.0) Mean Corpuscular Volume 88 fL (79-100) Mean Corpuscular Hemoglobin 30 pg (25-35) Mean Corpuscular Hemoglobin Concent 34 g/dL (31-37) Red Cell Distribution Width 13.8 % (11.5-14.5) Platelet Count 225 x10^3/uL (140-400) Neutrophils (%) (Auto) 69 % (31-73) Lymphocytes (%) (Auto) 23 % (24-48) Monocytes (%) (Auto) 6 % (0-9) Eosinophils (%) (Auto) 1 % (0-3) Basophils (%) (Auto) 0 % (0-3) Neutrophils # (Auto) 6.0 x10^3uL (1.8-7.7) Lymphocytes # (Auto) 2.0 x10^3/uL (1.0-4.8) Monocytes # (Auto) 0.6 x10^3/uL (0.0-1.1) Eosinophils # (Auto) 0.1 x10^3/uL (0.0-0.7) Basophils # (Auto) 0.0 x10^3/uL (0.0-0.2) Sodium Level 139 mmol/L (136-145) Potassium Level 3.5 mmol/L (3.5-5.1) Chloride Level 102 mmol/L (98-107) Carbon Dioxide Level 28 mmol/L (21-32) Anion Gap 9 (6-14) Blood Urea Nitrogen 9 mg/dL (7-20) Creatinine 0.6 mg/dL (0.6-1.0) Estimated GFR (Cockcroft-Gault) 115.1 BUN/Creatinine Ratio 15 (6-20) Glucose Level 108 mg/dL (70-99) Calcium Level 9.1 mg/dL (8.5-10.1) Total Bilirubin 0.1 mg/dL (0.2-1.0) Aspartate Amino Transf (AST/SGOT) 16 U/L (15-37) Alanine Aminotransferase (ALT/SGPT) 22 U/L (14-59) Alkaline Phosphatase 74 U/L (46-116) Total Protein 7.5 g/dL (6.4-8.2) Albumin 2.5 g/dL (3.4-5.0) Albumin/Globulin Ratio 0.5 (1.0-1.7) EKG EKG [] Radiology/Procedures Radiology/Procedures [] Course & Med Decision Making Course & Med Decision Making Pertinent Labs and Imaging studies reviewed. 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 She was initially given 1 dose of labetalol 20 mg IV, betamethasone 12mg IM as well as magnesium 4 g infused over 20min Dragon Disclaimer Dragon Disclaimer This electronic medical record was generated, in whole or in part, using a voice recognition dictation system. Departure Departure: Impression: Primary Impression: Pre-eclampsia complicating hypertension Disposition: XFER OTHER Condition: STABLE Referrals: CADENCE MATTHEWS DO (PCP) CRYSTAL BISHOP MD Apr 27, 2017 18:01
[2017-04-27 18:11] LABS: ALBUMIN 2.5 g/dL (3.4-5.0); ALBUMIN/GLOBULIN RATIO 0.5 (1.0-1.7); CALCIUM 9.1 mg/dL (8.5-10.1); CREATININE 0.6 mg/dL (0.6-1.0); GFR 115.1; POTASSIUM 3.5 mmol/L (3.5-5.1); TOTAL BILIRUBIN 0.1 mg/dL (0.2-1.0); TOTAL PROTEIN 7.5 g/dL (6.4-8.2)
[2017-04-27] MEDS ORDERED: MAGNESIUM SULFATE 2GM 100 ML IV ONE ×2 (18:11→18:15)
[2017-04-27] MEDS ORDERED: IV NORMAL SALINE 1,000ML 1,000 ML IV ONE (18:30)
[2017-04-27] MEDS ORDERED: BETAMET ACET&NA PHOS 30 MG/5 ML VIAL. IM ONE (18:30)
[2017-04-27] MEDS ORDERED: MAGNESIUM SULFATE 2GM 50 ML IV ONE ×2 (18:45→19:00)
[2017-04-27 19:15] VITALS: BP 144/71
[2017-04-27 19:32] LABS: BILIRUBIN,URINE NEG (NEG); CLARITY,URINE CLEAR; COLOR,URINE YELLOW; GLUCOSE,URINE NEG (NEG); NITRITE,URINE NEG (NEG); UROBILINOGEN,URINE 0.2 mg/dL (0.2 mg/dL)
[2017-04-27 19:33] LABS: BACTERIA,URINE FEW /HPF (0-FEW); SQUAMOUS EPITHELIAL CELL,UR MANY /LPF
== END 2017-04-27 19:20 | disposition short-term general hospital (02) ==
LOC: ER 17:30
DX: O15.03 Eclampsia complicating pregnancy, third trimester (principal); O16.3 Unspecified maternal hypertension, third trimester; O26.893 Other specified pregnancy related conditions, third trimester; O99.283 Endocrine, nutritional and metabolic diseases complicating pregnancy, third trimester; O99.513 Diseases of the respiratory system complicating pregnancy, third trimester; E03.9 Hypothyroidism, unspecified; J45.909 Unspecified asthma, uncomplicated; Z3A.30 30 weeks gestation of pregnancy; Z88.0 Allergy status to penicillin; Z91.041 Radiographic dye allergy status
CPT/HCPCS: 36415; 80053; 81001; 85025; 96365; 96372; 96375; 96376; 99291; J0702; J3475; J3490; J7030

== ENCOUNTER 2017-09-26 04:14 | Emergency (ER) | payer OTHER ==
[~2017-09-26] VITALS: Ht 170.2 cm; Wt 139.7 kg
[2017-09-26 04:20] VITALS: BP 124/75
[2017-09-26] MEDS ORDERED: ALBU18HF IH (04:44)
[2017-09-26] MEDS ORDERED: AZIT250T PO (04:44)
--- NOTE | 2017-09-26 04:44 | PHYS DOC ---
Past History Past Medical History: Asthma, Hypothyroid, Other Past Surgical History: Other Alcohol Use: None Drug Use: None Adult General Chief Complaint Chief Complaint: HEADACHE HPI HPI Patient is a 31 year old female who presents with complaint of sinus pressure and headache. The patient states that her symptoms started approximately 2 weeks ago. Patient states that she has history of recurrent sinus infections. Patient states that she has been taking ibuprofen, Benadryl and Flonase for treatment of her symptoms over the past 2 weeks. Patient states that she has been running low-grade fevers at home. Patient states she measured her temperature yesterday and found it to be 100F. Despite treatment the patient states her symptoms have been getting worse over the past 48 hours. Due to chronicity of her symptoms and history of recurrent infections, patient came to the emergency department to be evaluated. Patient states that she recently lost her primary care doctor and has not been able to make an appointment with a new physician at this time. Review of Systems Review of Systems Constitutional: Fever, chills[] Eyes: Denies change in visual acuity, redness, or eye pain [] HENT: Nasal congestion[] Respiratory: Cough, denies shortness of breath[] Cardiovascular: Denies chest pain or edema[] GI: Denies abdominal pain, nausea, vomiting, bloody stools or diarrhea [] : Denies dysuria or hematuria [] Musculoskeletal: Denies back pain or joint pain [] Integument: Denies rash or skin lesions [] Neurologic: Headache, denies focal weakness or sensory changes [] All other systems were reviewed and found to be within normal limits, except as documented in this note. Allergies Allergies Allergies Coded Allergies Type Severity Reaction Last Updated Verified Penicillins Allergy Unknown RASH 04/27/17 No iodine Allergy Unknown 04/27/17 Yes Physical Exam Physical Exam Constitutional: Alert, afebrile, appears in mild to moderate discomfort. [] HENT: Normocephalic, atraumatic, bilateral external ears normal, oropharynx moist, no oral exudates, nasal mucosa edematous and inflamed bilaterally, thick rhinorrhea, bilateral maxillary sinus tenderness to palpation. [] Eyes: PERRLA, EOMI, conjunctiva normal, no discharge. [] Neck: Normal range of motion, no tenderness, supple, no stridor. [] Cardiovascular: Tachycardia, regular rhythm, no murmur [] Lungs & Thorax: Bilateral breath sounds clear to auscultation [] Abdomen: Bowel sounds normal, soft, no tenderness, no masses, no pulsatile masses. [] Skin: Warm, dry, no erythema, no rash. [] Back: No tenderness, no CVA tenderness. [] Extremities: No tenderness, no cyanosis, no clubbing, ROM intact, no edema. [] Neurologic: Alert and oriented X 3, normal motor function, normal sensory function, no focal deficits noted. [] Current Patient Data Vital Signs Vital Signs Date Time Temp Pulse Resp B/P (MAP) Pulse Ox O2 Delivery O2 Flow Rate FiO2 09/26/17 04:20 98.2 102 20 95 Room Air Lab Results Not performed EKG EKG Not performed[] Radiology/Procedures Radiology/Procedures Not performed[] Course & Med Decision Making Course & Med Decision Making Pertinent Labs and Imaging studies reviewed. (See chart for details) The patient has findings on exam consistent with acute sinusitis. Given chronicity of symptoms, the patient is appropriate for antibiotic treatment at this time. The patient was started on azithromycin for treatment. Patient also notes that she has history of asthma and does not currently have a rescue inhaler at home. The patient was given a prescription and advised follow-up with primary doctor in 5-7 days for reevaluation. Advised return emergency department for any worsening symptoms. Patient voiced understanding and in agreement with treatment plan. Dragon Disclaimer Dragon Disclaimer This electronic medical record was generated, in whole or in part, using a voice recognition dictation system. Departure Departure: Impression: Primary Impression: Acute sinusitis Disposition: HOME, SELF-CARE Condition: STABLE Referrals: PCP,NO (PCP) Patient Instructions: Sinusitis Additional Instructions: Follow-up with your primary doctor in the next 5-7 days for reevaluation. Return to the emergency department for any worsening symptoms. Scripts Albuterol Sulfate (VENTOLIN HFA INHALER) 18 Gm Hfa.aer.ad 2 PUFF IH Q4HRS Y for WHEEZING, #1 INHALER 0 Refills Prov: FLORINDA LUONG MD 09/26/17 Azithromycin (ZITHROMAX) 250 Mg Tablet 1 PKG PO UD, #6 TAB Prov: FLORINDA LUONG MD 09/26/17 Problem Qualifiers Primary Impression: Acute sinusitis Sinusitis location: unspecified location Recurrence: recurrent Qualified Codes: J01.91 - Acute recurrent sinusitis, unspecified FLORINDA LUONG MD September 26, 2017 04:44
== END 2017-09-26 04:48 | disposition home or self-care (01) ==
LOC: ER 04:14
DX: J01.91 Acute recurrent sinusitis, unspecified (principal); E03.9 Hypothyroidism, unspecified; J45.909 Unspecified asthma, uncomplicated; Z88.0 Allergy status to penicillin; Z91.041 Radiographic dye allergy status
CPT/HCPCS: 99283

== ENCOUNTER 2018-02-09 21:15 | Emergency (ER) | payer SELFPAY ==
[~2018-02-09] VITALS: Ht 170.2 cm; Wt 130.2 kg
[~2018-02-09 21:15] MED LIST changes: +ALBU18HF IH; +AZIT250T PO
--- NOTE | 2018-02-09 21:17 | ED.ADGEN ---
Past History Past Medical History: Asthma, Hypothyroid, Migraines, UTI, Other Past Surgical History: Other Alcohol Use: None Drug Use: None Adult General Chief Complaint Chief Complaint ".. I get migraines... I took all of my home migraine meds.. but I still had a headache... so I came in...." HPI HPI Patient is a 32 year old female who presents with above hx and complaints of migraine headache. Pt. has taken home meds as directed. Pt . Denies any trauma, fever, chills, ill contacts, or recent travel. She has occasional migraines. Patient normally healthy. Pt. states presentation like typical migraine for her. Pt. has nausea, photophobia and malaise. Pt. states prior migraine headache work up were negative. Review of Systems Review of Systems Constitutional: Denies fever or chills [] Eyes: Denies change in visual acuity, redness, or eye pain [] HENT: Denies nasal congestion or sore throat [] Respiratory: Denies cough or shortness of breath [] Cardiovascular: No additional information not addressed in HPI [] GI: Denies abdominal pain, nausea, vomiting, bloody stools or diarrhea [] : Denies dysuria or hematuria [] Musculoskeletal: Denies back pain or joint pain [] Integument: Denies rash or skin lesions [] Neurologic: Complaints headache, denies focal weakness or sensory changes [] Endocrine: Denies polyuria or polydipsia [] All other systems were reviewed and found to be within normal limits, except as documented in this note. Family History Family History Non-contributory Current Medications Current Medications Current Medications Medications (Trade) Dose Ordered Sig/Seamus Start Time Stop Time Status Last Admin Dose Admin Ketorolac Tromethamine (Toradol 30mg Vial) 30 mg 1X ONCE 02/09/18 22:45 02/09/18 22:46 DC 02/09/18 23:03 30 MG Lactated Ringer's 1,000 ml @ 1,000 mls/hr 1X ONCE 02/09/18 21:45 02/09/18 22:44 DC 02/09/18 22:04 1,000 MLS/HR Ondansetron HCl (Zofran) 8 mg 1X ONCE 02/09/18 21:45 02/09/18 21:46 DC 9/22/18 22:21 8 MG Sodium Chloride 50 ml @ As Directed STK-MED ONCE 02/09/18 22:14 02/09/18 22:15 DC Trimethoprim/ Sulfamethoxazole (Bactrim Ds) 1 tab 1X ONCE 02/09/18 22:45 02/09/18 22:47 DC 02/09/18 23:03 1 TAB Valproic Acid (Depacon) 500 mg STK-MED ONCE 02/09/18 22:14 02/09/18 22:15 DC Valproic Acid 500 mg/Sodium Chloride 55 ml @ 250 mls/hr STAT ONCE 02/09/18 21:45 02/09/18 21:58 DC 02/09/18 22:22 250 MLS/HR Allergies Allergies Allergies Coded Allergies Type Severity Reaction Last Updated Verified Penicillins Allergy Unknown RASH 04/27/17 No iodine Allergy Unknown 04/27/17 Yes Physical Exam Physical Exam Constitutional: Well developed, well nourished, mild distress, non-toxic appearance. [] HENT: Normocephalic, atraumatic, bilateral external ears normal, oropharynx moist, no oral exudates, nose normal. []No temporal artery tenderness. Eyes: PERRLA, EOMI, conjunctiva normal, no discharge. + photophobia Neck: Normal range of motion, no tenderness, supple, no stridor. [] Cardiovascular:Heart rate regular rhythm, no murmur [] Lungs & Thorax: Bilateral breath sounds equal apex , with few scattered wheezes on auscultation [] Abdomen: Bowel sounds normal, soft, no tenderness, no masses, no pulsatile masses. [] Obese. Skin: Warm, dry, no erythema, no rash. [] Back: No tenderness, no CVA tenderness. [] Extremities: No tenderness, no cyanosis, no clubbing, ROM intact, no edema. [] Neurologic: Alert and oriented X 3, normal motor function, normal sensory function, no focal deficits noted. []DTR + 2 patella and brachial. Ambulatory without problems. Psychologic: Affect anxious judgement normal, mood normal. [] Current Patient Data Vital Signs Vital Signs Date Time Temp Pulse Resp B/P (MAP) Pulse Ox O2 Delivery O2 Flow Rate FiO2 02/09/18 23:55 97.7 72 20 128/72 (90) 98 Room Air Lab Results Laboratory Tests Test 02/09/18 21:20 02/09/18 21:25 02/09/18 21:58 POC Urine HCG, Qualitative hcg negative (Negative) Urine Collection Type Unknown Urine Color Yellow Urine Clarity Hazy Urine pH 6.0 Urine Specific [place] 1.025 Urine Protein Neg (NEG-TRACE) Urine Glucose (UA) Neg mg/dL (NEG) Urine Ketones (Stick) Neg mg/dL (NEG) Urine Blood Small (NEG) Urine Nitrite Neg (NEG) Urine Bilirubin Neg (NEG) Urine Urobilinogen Dipstick 0.2 mg/dL (0.2 mg/dL) Urine Leukocyte Esterase Trace (NEG) Urine RBC 1-2 /HPF (0-2) Urine WBC 5-10 /HPF (0-4) Urine Squamous Epithelial Cells Few /LPF Urine Bacteria Few /HPF (0-FEW) Urine Opiates Screen Neg (NEG) Urine Methadone Screen Neg (NEG) Urine Barbiturates Neg (NEG) Urine Phencyclidine Screen Neg (NEG) Urine Amphetamine/Methamphetamine Neg (NEG) Urine Benzodiazepines Screen Neg (NEG) Urine Cocaine Screen Neg (NEG) Urine Cannabinoids Screen Neg (NEG) Urine Ethyl Alcohol Neg (NEG) White Blood Count 8.1 x10^3/uL (4.0-11.0) Red Blood Count 4.84 x10^6/uL (3.50-5.40) Hemoglobin 14.2 g/dL (12.0-15.5) Hematocrit 41.7 % (36.0-47.0) Mean Corpuscular Volume 86 fL (79-100) Mean Corpuscular Hemoglobin 29 pg (25-35) Mean Corpuscular Hemoglobin Concent 34 g/dL (31-37) Red Cell Distribution Width 12.7 % (11.5-14.5) Platelet Count 246 x10^3/uL (140-400) Neutrophils (%) (Auto) 46 % (31-73) Lymphocytes (%) (Auto) 43 % (24-48) Monocytes (%) (Auto) 9 % (0-9) Eosinophils (%) (Auto) 3 % (0-3) Basophils (%) (Auto) 0 % (0-3) Neutrophils # (Auto) 3.7 x10^3uL (1.8-7.7) Lymphocytes # (Auto) 3.5 x10^3/uL (1.0-4.8) Monocytes # (Auto) 0.7 x10^3/uL (0.0-1.1) Eosinophils # (Auto) 0.2 x10^3/uL (0.0-0.7) Basophils # (Auto) 0.0 x10^3/uL (0.0-0.2) Erythrocyte Sedimentation Rate 38 (0-25) H Prothrombin Time 9.8 SEC (9.4-11.4) Prothrombin Time INR 1.0 (0.9-1.1) PTT 25 SEC (23-33) Sodium Level 142 mmol/L (136-145) Potassium Level 3.4 mmol/L (3.5-5.1) L Chloride Level 106 mmol/L (98-107) Carbon Dioxide Level 29 mmol/L (21-32) Anion Gap 7 (6-14) Blood Urea Nitrogen 14 mg/dL (7-20) Creatinine 0.8 mg/dL (0.6-1.0) Estimated GFR (Cockcroft-Gault) 82.1 Glucose Level 108 mg/dL (70-99) H Calcium Level 9.2 mg/dL (8.5-10.1) Magnesium Level 1.9 mg/dL (1.8-2.4) EKG EKG [] Radiology/Procedures Radiology/Procedures [] Course & Med Decision Making Course & Med Decision Making Pertinent Labs and Imaging studies reviewed. (See chart for details). Pt. declines spinal tap at this time . Pt. exhibits UCAR capacity. Seems aware of risks and benefitis. Take home meds as directed. Follow up with primary and neurology. Return if any concerns. Take Bactrim DS twice a day for UTI. Follow up cultures.s Push Vit. c drinks and fruit juices. [] Final Impression Final Impression 1. Migraine 2. UTI 3. Elevation ESR[] 4. Hypokalemia- mild Dragon Disclaimer Dragon Disclaimer This electronic medical record was generated, in whole or in part, using a voice recognition dictation system. OSMAN RODRIGUEZ MD Feb 09, 2018 21:17
[2018-02-09] MEDS ORDERED: ONDANSETRON PF 4 MG/2 ML VIAL. IV ONE (21:45)
[2018-02-09] MEDS ORDERED: VALPROATE SODIUM 500 MG in IV NORMAL SALINE 50ML 50 ML IV ONE (21:45)
[2018-02-09] MEDS ORDERED: IV RINGERS SOLUTION,LACTATED 1,000 ML IV ONE (21:45)
[2018-02-09 22:12] LABS: BASO % 0 % (0-3); EOS # 0.2 x10^3/uL (0.0-0.7); EOS % 3 % (0-3); HEMATOCRIT 41.7 % (36.0-47.0); HEMOGLOBIN 14.2 g/dL (12.0-15.5); LYMPH # 3.5 x10^3/uL (1.0-4.8); LYMPH % 43 % (24-48); MEAN CORPUSCULAR HEMOGLOBIN 29 pg (25-35); MEAN CORPUSCULAR HGB CONC 34 g/dL (31-37); MEAN CORPUSCULAR VOLUME 86 fL (79-100); MONO # 0.7 x10^3/uL (0.0-1.1); MONO % 9 % (0-9); NEUT # 3.7 x10^3uL (1.8-7.7); NEUT % 46 % (31-73); PLATELET COUNT 246 x10^3/uL (140-400); RED BLOOD COUNT 4.84 x10^6/uL (3.50-5.40); RED CELL DISTRIBUTION WIDTH 12.7 % (11.5-14.5); WHITE BLOOD COUNT 8.1 x10^3/uL (4.0-11.0)
[2018-02-09] MEDS ORDERED: IV NORMAL SALINE 50ML 50 ML ONE (22:14)
[2018-02-09] MEDS ORDERED: VALPROATE SODIUM 500 MG/5 ML VIAL IV ONE (22:14)
[2018-02-09 22:20] LABS: CALCIUM 9.2 mg/dL (8.5-10.1); CREATININE 0.8 mg/dL (0.6-1.0); GFR 82.1; MAGNESIUM 1.9 mg/dL (1.8-2.4); POTASSIUM 3.4 mmol/L (3.5-5.1)
[2018-02-09 22:20] LABS: AMPHETAMINE/METHAMPHETAMINE NEG (NEG); BARBITURATES NEG (NEG); BENZODIAZEPINES NEG (NEG); CANNABINOIDS NEG (NEG); COCAINE NEG (NEG); METHADONE NEG (NEG); OPIATES NEG (NEG); PHENCYCLIDINE NEG (NEG)
[2018-02-09 22:30] LABS: BACTERIA,URINE FEW /HPF (0-FEW); BILIRUBIN,URINE NEG (NEG); CLARITY,URINE HAZY; COLOR,URINE YELLOW; GLUCOSE,URINE NEG (NEG); NITRITE,URINE NEG (NEG); SQUAMOUS EPITHELIAL CELL,UR FEW /LPF; UROBILINOGEN,URINE 0.2 mg/dL (0.2 mg/dL)
[2018-02-09] MEDS ORDERED: SMZ/TMP 800/160MG TABLET. PO ONE (22:45)
[2018-02-09] MEDS ORDERED: KETOROLAC 30 MG/ML VIAL. IV ONE (22:45)
[2018-02-09 23:15] LABS: SEDIMENTATION RATE 38 (0-25)
[2018-02-09] MEDS ORDERED: SULF1TAB24 PO (23:50)
[2018-02-09 23:55] VITALS: BP 128/72
== END 2018-02-09 23:55 | disposition home or self-care (01) ==
LOC: ER 21:15
DX: G43.909 Migraine, unspecified, not intractable, without status migrainosus (principal); N39.0 Urinary tract infection, site not specified; E87.6 Hypokalemia; R70.0 Elevated erythrocyte sedimentation rate; J45.909 Unspecified asthma, uncomplicated; E03.9 Hypothyroidism, unspecified; Z87.440 Personal history of urinary (tract) infections; Z88.0 Allergy status to penicillin; Z91.041 Radiographic dye allergy status
CPT/HCPCS: 36415; 80048; 80307; 81001; 81025; 83735; 85025; 85610; 85651; 85730; 87086; 96365; 96375; 99284; J1885; J2405; J3490; J7120; G0479

== ENCOUNTER 2018-07-18 16:31 | Emergency (ER) | payer SELFPAY ==
[~2018-07-18] VITALS: Ht 170.2 cm; Wt 127.5 kg
[~2018-07-18 16:31] MED LIST changes: -ALBU18HF IH; +ALBU2.5V8 IH; +ALBU2.5V8 INH; -ALBU8.5H8 INH; +HYDR-1179 PO; +HYDR-3165 PO; -HYDR-79 PO; -HYDR-971 PO; +SULF1TAB24 PO
[2018-07-18] MEDS ORDERED: predniSONE 20 MG TABLET PO ONE (17:00)
[2018-07-18] MEDS ORDERED: PRED20TA PO (17:02)
[2018-07-18] MEDS ORDERED: GUAI473L15 PO (17:02)
--- NOTE | 2018-07-18 17:02 | PHYS DOC ---
Past History Past Medical History: Asthma, Migraines, UTI, Other Past Surgical History: Other Alcohol Use: Rarely Drug Use: None Adult General Chief Complaint Chief Complaint: COUGH HPI HPI 32-year-old otherwise healthy female presents with a 2 day history of cough that she states is productive of yellow sputum low-grade fevers body aches headache. She states she's been using nebulized treatments at home without much relief of her cough and shortness of breath. She states her entire chest is hurting secondary to cough. She denies any nausea or vomiting. She denies a rash.[] Review of Systems Review of Systems Constitutional: Denies fever or chills [] Eyes: Denies change in visual acuity, redness, or eye pain [] HENT: Denies nasal congestion or sore throat [] Respiratory: Per history of present illness[] Cardiovascular: No additional information not addressed in HPI [] GI: Denies abdominal pain, nausea, vomiting, bloody stools or diarrhea [] : Denies dysuria or hematuria [] Musculoskeletal: Denies back pain or joint pain [] Integument: Denies rash or skin lesions [] Neurologic: Denies headache, focal weakness or sensory changes [] Endocrine: Denies polyuria or polydipsia [] All other systems were reviewed and found to be within normal limits, except as documented in this note. Current Medications Current Medications Current Medications Medications (Trade) Dose Ordered Sig/Seamus Start Time Stop Time Status Last Admin Dose Admin Prednisone (Prednisone) 60 mg 1X ONCE 07/18/18 17:00 07/18/18 17:01 UNV Allergies Allergies Allergies Coded Allergies Type Severity Reaction Last Updated Verified Penicillins Allergy Unknown RASH 04/27/17 No iodine Allergy Unknown 04/27/17 Yes Physical Exam Physical Exam Constitutional: Well developed, well nourished, appears ill but nontoxic. [] HENT: Normocephalic, atraumatic, bilateral external ears normal, oropharynx moist, no oral exudates, nose normal. [] Eyes: PERRLA, EOMI, conjunctiva normal, no discharge. [] Neck: Normal range of motion, no tenderness, supple, no stridor. [] Cardiovascular:Heart rate regular rhythm, no murmur [] Lungs & Thorax: Bilateral breath sounds clear to auscultation, no wheezes or rales [] Abdomen: Bowel sounds normal, soft, no tenderness, no masses, no pulsatile masses. [] Skin: Warm, dry, no erythema, no rash. [] Back: No tenderness, no CVA tenderness. [] Extremities: No tenderness, no cyanosis, no clubbing, ROM intact, no edema. [] Neurologic: Alert and oriented X 3, normal motor function, normal sensory function, no focal deficits noted. [] Psychologic: Anxious[] Current Patient Data Vital Signs Vital Signs Date Time Temp Pulse Resp B/P (MAP) Pulse Ox O2 Delivery O2 Flow Rate FiO2 07/18/18 16:41 97.9 78 18 97 Room Air EKG EKG [] Radiology/Procedures Radiology/Procedures [] Course & Med Decision Making Course & Med Decision Making Pertinent Labs and Imaging studies reviewed. (See chart for details) [ED course: Evaluation reveals a 32-year-old female with a dry hacking cough which she demonstrated multiple times in the emergency department. I did give her prednisone 60 mg by mouth. I encouraged her to continue with her nebulizer at home. I do not believe this is a bacterial bronchitis. She does not meet criteria for antibiotics. She is safe for discharge home.] Dragon Disclaimer Dragon Disclaimer This electronic medical record was generated, in whole or in part, using a voice recognition dictation system. Departure Departure: Impression: Primary Impression: Bronchitis Disposition: HOME, SELF-CARE Condition: STABLE Referrals: PCPALFRED (PCP) Patient Instructions: Acute Bronchitis, Viral Infections Additional Instructions: Follow with your primary care physician this week for recheck. Return to the emergency department with any new or concerning symptoms Scripts Guaifenesin/Codeine Phosphate (GUAIFENESIN AC COUGH SYRUP) 473 Ml Liquid 10 ML PO Q4-6HRS PRN for COUGH, #100 ML Prov: CINTHIA OLIVIA DO 07/18/18 Prednisone (PREDNISONE) 20 Mg Tablet 3 TAB PO BID for Bronchitis, #15 TAB Prov: CINTHIA OLIVIA DO 07/18/18 CINTHIA OLIVIA DO Jul 18, 2018 17:02
[2018-07-18 17:05] VITALS: BP 147/108
== END 2018-07-18 17:05 | disposition home or self-care (01) ==
LOC: ER 16:31
DX: J45.909 Unspecified asthma, uncomplicated (principal); G43.909 Migraine, unspecified, not intractable, without status migrainosus; Z87.440 Personal history of urinary (tract) infections; Z88.0 Allergy status to penicillin; Z88.8 Allergy status to other drugs, medicaments and biological substances
CPT/HCPCS: 99283; J7512

== ENCOUNTER 2018-09-08 01:17 | Emergency (ER) | payer SELFPAY ==
[~2018-09-08] VITALS: Ht 170.2 cm; Wt 88.9 kg
[~2018-09-08 01:17] MED LIST changes: +GUAI473L15 PO; +PRED20TA PO
--- NOTE | 2018-09-08 01:19 | ED.ADGEN ---
Past History Past Medical History: Asthma, Migraines, UTI, Other Past Surgical History: Other Alcohol Use: Rarely Drug Use: None Adult General Chief Complaint Chief Complaint ".. I was at [facility] earlier today... they said maybe I had a kidney stone... but they could not see it on CT... I have chronic pain from fibromyalgia.. but not pain like this here on my Rt. side.. " " Pain did get worse after I ate tonight..."..." I did have blood in my urine when I was at [facility]..." HPI HPI Patient is a 32 year old female who presents with above hx and complaints right upper quadrant and right flank pain. Patient has had history of prior kidney stone and has well biliary colic. Patient has history of anxiety, depression, fibromyalgia, migraines and asthma. Patient denies any intake of bad food. Patient denies any trauma. No recent travel. No specific ill contacts. There is family history of gallbladder disease. Review of Systems Review of Systems Constitutional: Denies fever or chills [] Eyes: Denies change in visual acuity, redness, or eye pain [] HENT: Denies nasal congestion or sore throat [] Respiratory: Denies cough or shortness of breath [] Cardiovascular: No additional information not addressed in HPI [] GI: Complains of right flank and upper abdominal pain, complains of nausea Musculoskeletal: Complaints are right flank back pain Integument: Denies rash or skin lesions [] Neurologic: Denies headache, focal weakness or sensory changes [] Endocrine: Denies polyuria or polydipsia [] All other systems were reviewed and found to be within normal limits, except as documented in this note. Family History Family History Noncontributory Current Medications Current Medications Current Medications Medications (Trade) Dose Ordered Sig/Seamus Start Time Stop Time Status Last Admin Dose Admin Famotidine (Pepcid Vial) 20 mg 1X ONCE 09/08/18 01:45 09/08/18 01:47 DC 09/08/18 01:45 20 MG Ketorolac Tromethamine (Toradol 30mg Vial) 30 mg 1X ONCE 09/08/18 02:15 09/08/18 02:17 DC 09/08/18 02:15 30 MG Lactated Ringer's 1,000 ml @ 1,000 mls/hr Q1H 09/08/18 01:45 4/21/19 02:44 DC 09/08/18 01:45 1,000 MLS/HR Morphine Sulfate (Morphine 10mg Syringe) 10 mg 1X ONCE 09/08/18 02:15 09/08/18 02:17 DC 09/08/18 02:15 10 MG Ondansetron HCl (Zofran) 8 mg 1X ONCE 09/08/18 01:45 09/08/18 01:47 DC 09/08/18 01:45 8 MG Allergies Allergies Allergies Coded Allergies Type Severity Reaction Last Updated Verified iodine Allergy Severe anaphalxysis 09/08/18 Yes Penicillins Allergy Unknown RASH 09/08/18 No Physical Exam Physical Exam Constitutional: no acute distress, non-toxic appearance. [] HENT: Normocephalic, atraumatic, bilateral external ears normal, oropharynx moist, no oral exudates, nose normal. [] Eyes: PERRLA, EOMI, conjunctiva normal, no discharge. [] Neck: Normal range of motion, no tenderness, supple, no stridor. [] Cardiovascular:Heart rate regular rhythm, no murmur [] Lungs & Thorax: Bilateral breath sounds equal apex with scattered wheezes on auscultation [] Abdomen: Bowel sounds decreasede, soft, right flank and right upper quadrant tenderness, no masses, no pulsatile masses. []Obese. Skin: Warm, dry, no erythema, no rash. [] Back: No tenderness, no CVA tenderness. [] Extremities: No tenderness, no cyanosis, no clubbing, ROM intact, no edema. [] No psoas or heeltap. Neurologic: Alert and oriented X 3, normal motor function, normal sensory function, no focal deficits noted. [] Psychologic: Affect anxious, judgement normal, mood normal. [] Current Patient Data Vital Signs Vital Signs Date Time Temp Pulse Resp B/P (MAP) Pulse Ox O2 Delivery O2 Flow Rate FiO2 09/08/18 01:25 97.8 71 24 97 Room Air Lab Results Laboratory Tests Test 09/08/18 01:35 09/08/18 01:43 09/08/18 02:00 Urine Collection Type Void Urine Color Yellow Urine Clarity Hazy Urine pH 7.5 Urine Specific Greer 1.020 Urine Protein Neg (NEG-TRACE) Urine Glucose (UA) Neg mg/dL (NEG) Urine Ketones (Stick) Neg mg/dL (NEG) Urine Blood Trace (NEG) Urine Nitrite Neg (NEG) Urine Bilirubin Neg (NEG) Urine Urobilinogen Dipstick 0.2 mg/dL (0.2 mg/dL) Urine Leukocyte Esterase Neg (NEG) Urine RBC Occ /HPF (0-2) Urine WBC 0 /HPF (0-4) Urine Squamous Epithelial Cells Few /LPF Urine Amorphous Sediment Present /HPF Urine Bacteria 0 /HPF (0-FEW) Urine Opiates Screen Neg (NEG) Urine Methadone Screen Neg (NEG) Urine Barbiturates Neg (NEG) Urine Phencyclidine Screen Neg (NEG) Urine Amphetamine/Methamphetamine Neg (NEG) Urine Benzodiazepines Screen Neg (NEG) Urine Cocaine Screen Neg (NEG) Urine Cannabinoids Screen Neg (NEG) Urine Ethyl Alcohol Neg (NEG) POC Urine HCG, Qualitative hcg negative (Negative) White Blood Count 6.4 x10^3/uL (4.0-11.0) Red Blood Count 4.69 x10^6/uL (3.50-5.40) Hemoglobin 14.0 g/dL (12.0-15.5) Hematocrit 41.1 % (36.0-47.0) Mean Corpuscular Volume 88 fL (79-100) Mean Corpuscular Hemoglobin 30 pg (25-35) Mean Corpuscular Hemoglobin Concent 34 g/dL (31-37) Red Cell Distribution Width 13.6 % (11.5-14.5) Platelet Count 229 x10^3/uL (140-400) Neutrophils (%) (Auto) 61 % (31-73) Lymphocytes (%) (Auto) 24 % (24-48) Monocytes (%) (Auto) 13 % (0-9) H Eosinophils (%) (Auto) 1 % (0-3) Basophils (%) (Auto) 1 % (0-3) Neutrophils # (Auto) 3.9 x10^3uL (1.8-7.7) Lymphocytes # (Auto) 1.5 x10^3/uL (1.0-4.8) Monocytes # (Auto) 0.8 x10^3/uL (0.0-1.1) Eosinophils # (Auto) 0.1 x10^3/uL (0.0-0.7) Basophils # (Auto) 0.0 x10^3/uL (0.0-0.2) Prothrombin Time 9.4 SEC (9.4-11.4) Prothrombin Time INR 0.9 (0.9-1.1) PTT 27 SEC (23-33) Sodium Level 141 mmol/L (136-145) Potassium Level 4.1 mmol/L (3.5-5.1) Chloride Level 102 mmol/L (98-107) Carbon Dioxide Level 30 mmol/L (21-32) Anion Gap 9 (6-14) Blood Urea Nitrogen 13 mg/dL (7-20) Creatinine 0.9 mg/dL (0.6-1.0) Estimated GFR (Cockcroft-Gault) 71.7 Glucose Level 118 mg/dL (70-99) H Calcium Level 9.2 mg/dL (8.5-10.1) Total Bilirubin 0.1 mg/dL (0.2-1.0) L Direct Bilirubin < 0.1 mg/dL (0.0-0.2) Aspartate Amino Transferase (AST) 14 U/L (15-37) L Alanine Aminotransferase (ALT) 21 U/L (14-59) Alkaline Phosphatase 122 U/L (46-116) H Troponin I Quantitative < 0.017 ng/mL (0-0.055) Total Protein 7.6 g/dL (6.4-8.2) Albumin 3.4 g/dL (3.4-5.0) Lipase 131 U/L (73-393) EKG stock fitter shows sinus rhythm Radiology/Procedures Radiology/Procedures My interpretation of acute abdomen film shows no free air in the diaphragm. Increased stool in the colon. IUD. Obstructive bowel gas pattern CT of abdomen shows a prominence of bowel loops on left side. Questionable 1 m. meter distal ureter stone.[] He formal report when available Course & Med Decision Making Course & Med Decision Making Pertinent Labs and Imaging studies reviewed. (See chart for details) Patient remain on a clear fluid diet only. No solids or milk products. Must allow bowel rest. Get ultrasound workup outpatient for biliary colic. Take Zofran as needed for nausea and vomiting. May have Vicoprofen up to 4 times a day for marked pain. Follow-up primary care. Return if any concerns. Remain on a low-fat diet. [] Final Impression Final Impression 1. Abdomen Pain 2. Nausea and Vomiting[] 3. Biliary colic- after high-fat meals 4. Possible distal right ureter stone Dragon Disclaimer Dragon Disclaimer This electronic medical record was generated, in whole or in part, using a voice recognition dictation system. Discharge Summary Visit Information Final Diagnosis Problems Medical Problems: (1) Biliary colic Status: Acute (2) Renal colic Status: Acute Brief Hospital Course Allergies Allergies Coded Allergies Type Severity Reaction Last Updated Verified iodine Allergy Severe anaphalxysis 09/08/18 Yes Penicillins Allergy Unknown RASH 09/08/18 No Vital Signs Vital Signs Date Time Temp Pulse Resp B/P (MAP) Pulse Ox O2 Delivery O2 Flow Rate FiO2 09/08/18 01:25 97.8 71 24 97 Room Air Lab Results Laboratory Tests Test 09/08/18 01:35 09/08/18 01:43 09/08/18 02:00 Urine Collection Type Void Urine Color Yellow Urine Clarity Hazy Urine pH 7.5 Urine Specific [place] 1.020 Urine Protein Neg (NEG-TRACE) Urine Glucose (UA) Neg mg/dL (NEG) Urine Ketones (Stick) Neg mg/dL (NEG) Urine Blood Trace (NEG) Urine Nitrite Neg (NEG) Urine Bilirubin Neg (NEG) Urine Urobilinogen Dipstick 0.2 mg/dL (0.2 mg/dL) Urine Leukocyte Esterase Neg (NEG) Urine RBC Occ /HPF (0-2) Urine WBC 0 /HPF (0-4) Urine Squamous Epithelial Cells Few /LPF Urine Amorphous Sediment Present /HPF Urine Bacteria 0 /HPF (0-FEW) Urine Opiates Screen Neg (NEG) Urine Methadone Screen Neg (NEG) Urine Barbiturates Neg (NEG) Urine Phencyclidine Screen Neg (NEG) Urine Amphetamine/Methamphetamine Neg (NEG) Urine Benzodiazepines Screen Neg (NEG) Urine Cocaine Screen Neg (NEG) Urine Cannabinoids Screen Neg (NEG) Urine Ethyl Alcohol Neg (NEG) Bedside Urine HCG, Qualitative hcg negative (Negative) White Blood Count 6.4 x10^3/uL (4.0-11.0) Red Blood Count 4.69 x10^6/uL (3.50-5.40) Hemoglobin 14.0 g/dL (12.0-15.5) Hematocrit 41.1 % (36.0-47.0) Mean Corpuscular Volume 88 fL (79-100) Mean Corpuscular Hemoglobin 30 pg (25-35) Mean Corpuscular Hemoglobin Concent 34 g/dL (31-37) Red Cell Distribution Width 13.6 % (11.5-14.5) Platelet Count 229 x10^3/uL (140-400) Neutrophils (%) (Auto) 61 % (31-73) Lymphocytes (%) (Auto) 24 % (24-48) Monocytes (%) (Auto) 13 % (0-9) Eosinophils (%) (Auto) 1 % (0-3) Basophils (%) (Auto) 1 % (0-3) Neutrophils # (Auto) 3.9 x10^3uL (1.8-7.7) Lymphocytes # (Auto) 1.5 x10^3/uL (1.0-4.8) Monocytes # (Auto) 0.8 x10^3/uL (0.0-1.1) Eosinophils # (Auto) 0.1 x10^3/uL (0.0-0.7) Basophils # (Auto) 0.0 x10^3/uL (0.0-0.2) Prothrombin Time 9.4 SEC (9.4-11.4) Prothromb Time International Ratio 0.9 (0.9-1.1) Activated Partial Thromboplast Time 27 SEC (23-33) Sodium Level 141 mmol/L (136-145) Potassium Level 4.1 mmol/L (3.5-5.1) Chloride Level 102 mmol/L (98-107) Carbon Dioxide Level 30 mmol/L (21-32) Anion Gap 9 (6-14) Blood Urea Nitrogen 13 mg/dL (7-20) Creatinine 0.9 mg/dL (0.6-1.0) Estimated GFR (Cockcroft-Gault) 71.7 Glucose Level 118 mg/dL (70-99) Calcium Level 9.2 mg/dL (8.5-10.1) Total Bilirubin 0.1 mg/dL (0.2-1.0) Direct Bilirubin < 0.1 mg/dL (0.0-0.2) Aspartate Amino Transf (AST/SGOT) 14 U/L (15-37) Alanine Aminotransferase (ALT/SGPT) 21 U/L (14-59) Alkaline Phosphatase 122 U/L (46-116) Troponin I Quantitative < 0.017 ng/mL (0-0.055) Total Protein 7.6 g/dL (6.4-8.2) Albumin 3.4 g/dL (3.4-5.0) Lipase 131 U/L (73-393) Brief Hospital Course Ms. Gonzalez is a 32 old female who presented with suspect renal colic and biliary colic Discharge Information Condition at Discharge: Improved, Stable Disposition/Orders: D/C to Home Dischare Medications Current Medications Lactated Ringer's 1,000 ml @ 1,000 mls/hr Q1H IV Last administered on at 01:45; Admin Dose 1,000 MLS/HR; Start 09/08/18 at 01:45; Stop 09/08/18 at 02:44; Status DC Ondansetron HCl (Zofran) 8 mg 1X ONCE IV Last administered on 09/08/18at 01:45 ; Admin Dose 8 MG; Start 09/08/18 at 01:45; Stop 09/08/18 at 01:47; Status DC Famotidine (Pepcid Vial) 20 mg 1X ONCE IVP Last administered on 09/08/18at 01: 45; Admin Dose 20 MG; Start 09/08/18 at 01:45; Stop 09/08/18 at 01:47; Status DC Ketorolac Tromethamine (Toradol 30mg Vial) 30 mg 1X ONCE IV Last administered on 09/08/18at 02:15; Admin Dose 30 MG; Start 09/08/18 at 02:15; Stop 09/08/18 at 02:17; Status DC Morphine Sulfate (Morphine 10mg Syringe) 10 mg 1X ONCE SQ Last administered on 09/08/18at 02:15; Admin Dose 10 MG; Start 09/08/18 at 02:15; Stop 09/08/18 at 02:17; Status DC Active Scripts Active Zofran (Ondansetron Hcl) 8 Mg Tablet 8 Mg PO QID Hydrocodone-Ibuprofen 7.5-200 (Hydrocodone/Ibuprofen) 1 Each Tablet 1 Tab PO PRN Q6HRS PRN Guaifenesin Ac Cough Syrup (Guaifenesin/Codeine Phosphate) 473 Ml Liquid 10 Ml PO Q4-6HRS PRN Prednisone 20 Mg Tablet 3 Tab PO BID Bactrim Ds Tablet (Sulfamethoxazole/Trimethoprim) 1 Each Tablet 1 Tab PO BID Ventolin Hfa Inhaler (Albuterol Sulfate) 18 Gm Hfa.aer.ad 2 Puff IH Q4HRS PRN Zithromax (Azithromycin) 250 Mg Tablet 1 Pkg PO UD Medrol (Methylprednisolone) 4 Mg Tab.ds.pk 1 Pkg PO UD Keflex (Cephalexin) 500 Mg Capsule 1 Cap PO BID Colace (Docusate Sodium) 100 Mg Capsule 1 Cap PO BID PRN Zofran (Ondansetron Hcl) 4 Mg Tablet 4 Mg PO PRN Q8HRS PRN Prednisone 50 Mg Tablet 1 Tab PO DAILY Tylenol With Codeine #3 Tablet (Acetaminophen With Codeine) 1 Each Tablet 1 Tab PO Q6HRS PRN Azithromycin Tablet (Azithromycin) 250 Mg Tablet 1 Pkg PO UD Cyclobenzaprine Hcl 5 Mg Tablet 5 Mg PO TID PRN PRN Imitrex (Sumatriptan Succinate) 100 Mg Tablet 100 Mg PO DAILY PRN Zofran Odt (Ondansetron) 8 Mg Tab.rapdis 8 Mg PO QIDPRN PRN Hydrocodone-Ibuprofen 7.5-200 (Hydrocodone/Ibuprofen) 1 Each Tablet 1 Tab PO PRN Q6HRS PRN [place] 5-325 Tablet (Hydrocodone Bit/Acetaminophen) 1 Each Tablet 1-2 Tab PO Q6HRS PRN Azithromycin Tablet (Azithromycin) 250 Mg Tablet 250 Mg PO DAILY Reported Prometrium (Progesterone,Micronized) 100 Mg Capsule Unknown Dose PO Synthroid (Levothyroxine Sodium) 150 Mcg Tablet 1 Tab PO DAILY Proair Hfa Inhaler (Albuterol Sulfate) 8.5 Gm Hfa.aer.ad 1 Puff INH PRN Q6HRS PRN [Pre ] Metoprolol Succinate ( Xl ) (Metoprolol Succinate) 25 Mg Tab.er.24h 25 Mg PO DAILY Xanax (Alprazolam) 0.5 Mg Tablet 0.5 Mg PO PRN Q6HRS PRN Celexa (Citalopram Hydrobromide) 10 Mg Tablet 10 Mg PO DAILY Piter Disclaimer This chart was dictated in whole or in part using Voice Recognition software in a busy, high-work load, and often noisy Emergency Department environment. It may contain unintended and wholly unrecognized errors or omissions. OSMAN RODRIGUEZ MD Sep 08, 2018 01:19
[2018-09-08] MEDS ORDERED: ONDANSETRON PF 4 MG/2 ML VIAL. IV ONE (01:45)
[2018-09-08] MEDS ORDERED: IV RINGERS SOLUTION,LACTATED 1,000 ML IV SCH (01:45)
[2018-09-08] MEDS ORDERED: FAMOTIDINE 20 MG/2 ML VIAL IVP ONE (01:45)
[2018-09-08 01:56] LABS: BARBITURATES NEG (NEG); BENZODIAZEPINES NEG (NEG); CANNABINOIDS NEG (NEG); COCAINE NEG (NEG); METHADONE NEG (NEG); OPIATES NEG (NEG); PHENCYCLIDINE NEG (NEG)
[2018-09-08 02:02] LABS: AMPHETAMINE/METHAMPHETAMINE NEG (NEG)
[2018-09-08] MEDS ORDERED: MORPHINE SULFATE 10 MG/ML SYRINGE. SQ ONE (02:15)
[2018-09-08] MEDS ORDERED: KETOROLAC 30 MG/ML VIAL. IV ONE (02:15)
[2018-09-08 02:23] LABS: AMORPHOUS SEDIMENT,UR PRESENT /HPF; BACTERIA,URINE 0 /HPF (0-FEW); BILIRUBIN,URINE NEG (NEG); CLARITY,URINE HAZY; COLOR,URINE YELLOW; GLUCOSE,URINE NEG (NEG); NITRITE,URINE NEG (NEG); RBC,URINE OCC /HPF (0-2); SQUAMOUS EPITHELIAL CELL,UR FEW /LPF; UROBILINOGEN,URINE 0.2 mg/dL (0.2 mg/dL); WBC,URINE 0 /HPF (0-4)
[2018-09-08 02:41] LABS: BASO % 1 % (0-3); EOS # 0.1 x10^3/uL (0.0-0.7); EOS % 1 % (0-3); HEMATOCRIT 41.1 % (36.0-47.0); LYMPH # 1.5 x10^3/uL (1.0-4.8); LYMPH % 24 % (24-48); MEAN CORPUSCULAR HEMOGLOBIN 30 pg (25-35); MEAN CORPUSCULAR HGB CONC 34 g/dL (31-37); MEAN CORPUSCULAR VOLUME 88 fL (79-100); MONO # 0.8 x10^3/uL (0.0-1.1); MONO % 13 % (0-9); NEUT # 3.9 x10^3uL (1.8-7.7); NEUT % 61 % (31-73); PLATELET COUNT 229 x10^3/uL (140-400); RED BLOOD COUNT 4.69 x10^6/uL (3.50-5.40); RED CELL DISTRIBUTION WIDTH 13.6 % (11.5-14.5); WHITE BLOOD COUNT 6.4 x10^3/uL (4.0-11.0)
[2018-09-08 02:52] LABS: ALBUMIN 3.4 g/dL (3.4-5.0); ALK PHOS 122 U/L (46-116); ALT (SGPT) 21 U/L (14-59); ANION GAP 9 (6-14); AST (SGOT) 14 U/L (15-37); BLOOD UREA NITROGEN 13 mg/dL (7-20); CALCIUM 9.2 mg/dL (8.5-10.1); CARBON DIOXIDE 30 mmol/L (21-32); CHLORIDE 102 mmol/L (98-107); CREATININE 0.9 mg/dL (0.6-1.0); GFR 71.7; GLUCOSE 118 mg/dL (70-99); LIPASE 131 U/L (73-393); POTASSIUM 4.1 mmol/L (3.5-5.1); SODIUM 141 mmol/L (136-145); TOTAL BILIRUBIN 0.1 mg/dL (0.2-1.0); TOTAL PROTEIN 7.6 g/dL (6.4-8.2)
[2018-09-08 02:53] LABS: DIRECT BILIRUBIN < 0.1 mg/dL (0.0-0.2)
--- NOTE | 2018-09-08 03:27 | RAD ---
INDICATION: RUQ abdominal pain radiating to right upper back. No hx injury or sx. Patient allergic to oral and IV iodine contrast. COMPARISON: None. TECHNIQUE: Axial CT images obtained through the abdomen and pelvis without contrast. Limited assessment of solid organ structures and vasculature secondary to lack of intravenous contrast.. One or more of the following individualized dose reduction techniques were utilized for this examination: 1. Automated exposure control; 2. Adjustment of the mA and/or kV according to patient size; 3. Use of iterative reconstruction technique. FINDINGS: Abdominal aorta not aneurysmal. No intrahepatic bile duct dilation. Gallbladder somewhat distended at time of exam. No peripancreatic fluid collection. Spleen unremarkable. No left-sided hydronephrosis. Urinary bladder partially distended. Intrauterine device. No right-sided hydronephrosis. Questionable 1 mm high density focus near right ureterovesicular junction. Appendix measures up to about 6 mm without definitive adjacent inflammatory changes. No dilated loops of bowel to suggest obstruction. Prominence the wall of a couple of loops of bowel in the left-sided the abdomen. Degenerative changes of the spine. IMPRESSION: 1. Prominence of the wall the couple of bowel loops in the left-sided the abdomen. Could be secondary to phase of peristalsis but if the patient has appropriate symptoms causes such as enteritis not excluded. 2. Questionable 1 mm high density focus at right distal ureter. This is a very subtle finding and could be artifactual in nature although a very small distal ureter stone not excluded. Electronically signed by: Luis Chaves MD (09/08/2018 3:24 AM) [id number]
[2018-09-08] MEDS ORDERED: ONDA8TAB9 PO (05:27)
[2018-09-08] MEDS ORDERED: HYDR-1179 PO (05:27)
[2018-09-08 05:30] VITALS: BP 139/76
--- NOTE | 2018-09-08 08:07 | RAD ---
Acute Abdominal Series: Technique: PA view of the chest and supine and upright views of the abdomen were obtained. History: Pain. Comparison: None. Findings: The lungs and pleural margins are clear. There is formed stool scattered throughout the colon. There is a paucity small bowel gas. There is no free air. Impression: Constipation. Electronically signed by: Marco Simmons III, MD (09/08/2018 8:04 AM) [facility]
== END 2018-09-08 05:51 | disposition home or self-care (01) ==
LOC: ER 01:17
DX: K80.50 Calculus of bile duct without cholangitis or cholecystitis without obstruction (principal); N23 Unspecified renal colic; R11.2 Nausea with vomiting, unspecified; J45.909 Unspecified asthma, uncomplicated; G43.909 Migraine, unspecified, not intractable, without status migrainosus; Z87.440 Personal history of urinary (tract) infections; Z88.0 Allergy status to penicillin; Z88.8 Allergy status to other drugs, medicaments and biological substances
CPT/HCPCS: 36415; 74022; 74176; 80048; 80076; 80307; 81001; 81025; 83690; 84484; 85025; 85610; 85730; 96361; 96372; 96374; 96375; 99285; J1885; J2270; J2405; J3490; J7120

== ENCOUNTER 2021-10-09 17:35 | Emergency (ER) | payer SELFPAY ==
[~2021-10-09] VITALS: Ht 170.2 cm; Wt 127.5 kg
[~2021-10-09 17:35] MED LIST changes: +ONDA8TAB9 PO
[2021-10-09] MEDS ORDERED: MORPHINE SULFATE 2 MG/ML DISP.SYRIN. IV ONE ×2 (17:45→19:00)
[2021-10-09] MEDS ORDERED: IV NORMAL SALINE 1,000ML 1,000 ML IV ONE (17:45)
[2021-10-09] MEDS ORDERED: diphenhydrAMINE 50 MG/ML VIAL IVP ONE (17:45)
[2021-10-09] MEDS ORDERED: FAMOTIDINE 20 MG/2 ML VIAL IVP ONE (17:45)
[2021-10-09] MEDS ORDERED: methylPREDNISolone SOD SUCC PF 125 MG/2 ML VIAL. IV ONE (17:45)
[2021-10-09] MEDS ORDERED: diphenhydrAMINE 50 MG/ML VIAL ONE (17:51)
[2021-10-09] MEDS ORDERED: FAMOTIDINE 20 MG/2 ML VIAL ONE (17:51)
--- NOTE | 2021-10-09 17:52 | PHYS DOC ---
Past History Past Medical History: Fibromyalgia, Other Additional Past Medical Histor: Tiburcio Roberts. Past Surgical History: Other Alcohol Use: None Drug Use: None General Adult EDM: Chief Complaint: ALLERGIC REACTION HPI: HPI: Patient is a 35-year-old female who presents to the emergency department for an allergic reaction. 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 Patient reports that usually happens when she eats pork or beef. She reports that she ate some of that today when it was mixed in with some other food and now she is experiencing bilateral upper abdominal pain that she rates 10 out of 10 that radiates to her back. She reports when she was previously seen for this they gave her Benadryl, Tums and Gas-X and that did help her pain so she did take this prior to arrival. Patient reports that those medications are not helping today. She denies any urinary complaints, nausea, vomiting, fever, shortness of breath or difficulty breathing. Review of Systems: Review of Systems: Constitutional: See HPI Respiratory: See HPI GI: See HPI : See HPI Musculoskeletal: See HPI Current Medications: Current Meds: Current Medications Medications (Trade) Dose Ordered Sig/Seamus Start Time Stop Time Status Last Admin Dose Admin Diphenhydramine HCl (Benadryl) 25 mg 1X ONCE 10/09/21 17:45 10/09/21 17:46 UNV Famotidine (Pepcid Vial) 20 mg 1X ONCE 10/09/21 17:45 10/09/21 17:46 UNV Methylprednisolone Sodium Succinate (SOLU-Medrol 125MG VIAL) 125 mg 1X ONCE 10/09/21 17:45 10/09/21 17:46 UNV Morphine Sulfate (Morphine 2mg Syringe) 2 mg 1X ONCE 10/09/21 17:45 10/09/21 17:46 UNV Sodium Chloride 1,000 ml @ 1,000 mls/hr 1X ONCE 10/09/21 17:45 10/09/21 18:44 UNV Allergies: Allergies: Allergies Coded Allergies Type Severity Reaction Last Updated Verified iodine Allergy Severe anaphalxysis 09/08/18 Yes Penicillins Allergy Unknown RASH 09/08/18 No Physical Exam: PE: Constitutional: Well developed, well nourished, no acute distress, non-toxic appearance. [] HENT: Normocephalic, atraumatic, bilateral external ears normal, oropharynx moist, no oral exudates, nose normal. [] Eyes: PERRL, EOMI, conjunctiva normal, no discharge. [] Neck: Normal range of motion, no tenderness, supple, no stridor. [] Cardiovascular:Heart rate regular rhythm, no murmur [] Lungs & Thorax: Bilateral breath sounds clear to auscultation [] Abdomen: Bowel sounds normal, soft, no abdominal guarding or rigidity, upper abdominal pain with palpation, no masses, no pulsatile masses. [] Skin: Warm, dry, no erythema, no rash. [] Back: No tenderness, no CVA tenderness. [] Extremities: No tenderness, no cyanosis, no clubbing, ROM intact, no edema. [] Neurologic: Alert and oriented X 3, normal motor function, normal sensory function, no focal deficits noted. [] Psychologic: Affect normal, judgement normal, mood normal. [] Current Patient Data: Labs: Laboratory Tests Test 10/09/21 17:58 White Blood Count 6.3 x10^3/uL Red Blood Count 4.27 x10^6/uL Hemoglobin 12.6 g/dL Hematocrit 37.4 % Mean Corpuscular Volume 88 fL Mean Corpuscular Hemoglobin 29 pg Mean Corpuscular Hemoglobin Concent 34 g/dL Red Cell Distribution Width 12.9 % Platelet Count 193 x10^3/uL Neutrophils (%) (Auto) 53 % Lymphocytes (%) (Auto) 34 % Monocytes (%) (Auto) 9 % Eosinophils (%) (Auto) 3 % Basophils (%) (Auto) 1 % Neutrophils # (Auto) 3.3 x10^3uL Lymphocytes # (Auto) 2.2 x10^3/uL Monocytes # (Auto) 0.6 x10^3/uL Eosinophils # (Auto) 0.2 x10^3/uL Basophils # (Auto) 0.0 x10^3/uL Sodium Level 144 mmol/L Potassium Level 3.3 mmol/L Chloride Level 111 mmol/L Carbon Dioxide Level 24 mmol/L Anion Gap 9 Blood Urea Nitrogen 8 mg/dL Creatinine 0.5 mg/dL Estimated GFR (Cockcroft-Gault) 138.8 BUN/Creatinine Ratio 16 Glucose Level 82 mg/dL Calcium Level 7.5 mg/dL Total Bilirubin 0.2 mg/dL Aspartate Amino Transf (AST/SGOT) 47 U/L Alanine Aminotransferase (ALT/SGPT) 45 U/L Alkaline Phosphatase 61 U/L Total Protein 5.1 g/dL Albumin 2.5 g/dL Albumin/Globulin Ratio 1.0 Lipase 78 U/L Current Medications Medications (Trade) Dose Ordered Sig/Seamus Route PRN Reason Start Time Stop Time Status Last Admin Dose Admin Diphenhydramine HCl (Benadryl) 25 mg 1X ONCE IVP 10/09/21 17:45 10/09/21 17:54 DC 10/09/21 17:45 Famotidine (Pepcid Vial) 20 mg 1X ONCE IVP 10/09/21 17:45 10/09/21 17:54 DC 10/09/21 17:45 Morphine Sulfate (Morphine 2mg Syringe) 2 mg 1X ONCE IV 10/09/21 17:45 10/09/21 17:54 DC 10/09/21 17:45 Sodium Chloride 1,000 ml @ 1,000 mls/hr 1X ONCE IV 10/09/21 17:45 10/09/21 18:44 DC 10/09/21 17:45 Methylprednisolone Sodium Succinate (SOLU-Medrol 125MG VIAL) 125 mg 1X ONCE IV 10/09/21 17:45 10/09/21 17:54 DC 10/09/21 17:45 Diphenhydramine HCl (Benadryl) 50 mg STK-MED ONCE .ROUTE 10/09/21 17:51 10/09/21 17:52 DC Famotidine (Pepcid Vial) 20 mg STK-MED ONCE .ROUTE 10/09/21 17:51 10/09/21 17:52 DC Potassium Chloride (Klor-Con) 20 meq 1X ONCE PO 10/09/21 19:00 10/09/21 19:01 Morphine Sulfate (Morphine 2mg Syringe) 2 mg 1X ONCE IV 10/09/21 19:00 10/09/21 19:01 UNV Calcitriol (Rocaltrol) 0.25 mcg DAILY PO 10/10/21 09:00 UNV Vital Signs: Vital Signs Date Time Temp Pulse Resp B/P (MAP) Pulse Ox O2 Delivery O2 Flow Rate FiO2 10/09/21 17:42 98.3 97 16 148/78 (101) EKG: EKG: EKG performed by ER staff at 1858 shows sinus rhythm, QTC is 455, rate is 81, no STEMI read by Dr. Ramos [] Radiology/Procedures: Radiology/Procedures: []REASON: abdominal pain PROCEDURE: CT ABDOMEN PELVIS WO CONTRAST Exam: CT of abdomen and pelvis without contrast INDICATION: Abdominal pain, Back pain TECHNIQUE: Sequential axial images through the abdomen and pelvis obtained without IV contrast. Sagittal and coronal reformatted images were reconstructed from the axial data and reviewed. Exposure: One or more of the following in the visualized dose reduction techniques were utilized for this examination: 1. Automated exposure control 2. Adjustment of the MA and/or KV according to patient size 3. Use of iterative of reconstructive technique Comparisons: 09/08/2018 FINDINGS: Heart size is normal. No pericardial effusion. Visualized lung bases are clear. No pleural effusion. Evaluation of solid organs limited secondary to noncontrast technique. Liver, spleen, pancreas, gallbladder and adrenals are unremarkable. No perinephric inflammation or hydronephrosis. No renal or ureteral calculi are identified. Bladder is partially distended and appears thin-walled. Uterus not enlarged. IUD noted in the uterus. No abnormal adnexal mass. Moderate amount of stool is noted throughout the colon. Appendix is normal. No free intra-abdominal air or fluid. No obstruction. Abdominal aorta has normal course and caliber. No enlarged intra-abdominal lymph nodes are identified. No suspicious osseous lesions or acute fractures. IMPRESSION: No acute process identified within the abdomen or pelvis Electronically signed by: Dc Rodriguez MD (10/09/2021 6:35 PM) [facility] DICTATED AND SIGNED BY: DC RODRIGUEZ MD DATE: 10/09/211830 CC: MADELINE YOUNG [employer]PER[employer]-; ANIBAL DEGROOT [employer] ~ Heart Score: C/O Chest Pain: N/A Risk Factors: Risk Factors: DM, Current or recent (<one month) smoker, HTN, HLP, family history of CAD, obesity. Risk Scores: Score 0 - 3: 2.5% MACE over next 6 weeks - Discharge Home Score 4 - 6: 20.3% MACE over next 6 weeks - Admit for Clinical Observation Score 7 - 10: 72.7% MACE over next 6 weeks - Early Invasive Strategies Course & Med Decision Making: Course & Med Decision Making Pertinent Labs and Imaging studies reviewed. (See chart for details) [] Patient presents to the emergency department for upper abdominal pain. Patient reports that she has Francine-Danlos syndrome which causes a protein allergy which leads to GI upset when she eats any pork or beef. Work-up in the ER consisted of blood work, urinalysis CT imaging of abdomen and pelvis that she reported when this previously occurred I told her she had inflammation of her gallbladder. Patient be treated with allergic reaction medication cocktail, IV fluids and pain medication. Patient CBC is unremarkable, mild hypokalemia noted with a potassium of 3.3 and hypocalcemia. Patient is asymptomatic she is negative chvosteks test. EKG does not show any prolonged QT segment. Potassium, magnesium and calcium replaced. CT does not show any acute findings. Patient does report improvement in her symptoms following treatment in the ER. Due to patient's hypokalemia, hypocalcemia and hypomagnesemia, patient was offered admission. Patient reports that she would like to go home. She states that she is not primary care prov ider with [facility] that she can follow-up with. Patient will be discharged home with pain medication. I discussed with patient all findings and diagnostic testing as well as the need to follow-up with PCP for further evaluation and treatment or return to the ER if any new or worsening symptoms. Strict return precautions were also discussed at length. Patient voiced understanding and agreement with the plan. Patient is hemodynamically stable at the time of disposition. Piter Disclaimer: Piter Disclaimer: This electronic medical record was generated, in whole or in part, using a voice recognition dictation system. Departure Departure: Impression: Primary Impression: Abdominal pain Qualified Codes: R10.9 - Unspecified abdominal pain Additional Impressions: Hypokalemia Hypocalcemia Hypomagnesemia Disposition: 01 HOME / SELF CARE / HOMELESS Condition: GOOD Referrals: MADELINE YOUNG (PCP) Patient Instructions: Hypocalcemia, Adult, Hypokalemia Additional Instructions: You are seen in the emergency department today for abdominal pain. You are being discharged home with pain medication you can take as needed. This me dication is hydrocodone and Tylenol combination tablet. This medication may cause sedation so do not take when you need to be alert, driving a vehicle or with alcohol. As we discussed, you were noted to have a low potassium, magnesium and calcium level likely due to your thyroid. Please make sure that you are eating potassium rich foods like green leafy vegetables, magnesium rich foods like spinach and nuts. Please follow-up with your primary care provider tomorrow regarding your ER visit. You will need to have these electrolyte levels rechecked and monitored. Please make sure that they are monitoring for thyroid levels as well. Return to the emergency department if you develop worsening of your abdominal pain, high fevers refractory to treatment, chest pain, shortness of breath, intractable nausea or vomiting, blood in your stools or vomit. Scripts Hydrocodone Bit/Acetaminophen (HYDROCODONE-APAP 5-325 ) 1 Each Tablet 1 TAB PO PRN Q6HRS PRN for PAIN for 2 Days, #8 TAB 0 Refills Prov: ANIBAL DEGROOT APRN 10/09/21 ANIBAL DEGROOT APRN October 09, 2021 17:52
[2021-10-09 18:15] LABS: BASO % 1 % (0-3); EOS # 0.2 x10^3/uL (0.0-0.7); EOS % 3 % (0-3); HEMATOCRIT 37.4 % (36.0-47.0); HEMOGLOBIN 12.6 g/dL (12.0-15.5); LYMPH # 2.2 x10^3/uL (1.0-4.8); LYMPH % 34 % (24-48); MEAN CORPUSCULAR HEMOGLOBIN 29 pg (25-35); MEAN CORPUSCULAR HGB CONC 34 g/dL (31-37); MEAN CORPUSCULAR VOLUME 88 fL (79-100); MONO # 0.6 x10^3/uL (0.0-1.1); MONO % 9 % (0-9); NEUT # 3.3 x10^3uL (1.8-7.7); NEUT % 53 % (31-73); PLATELET COUNT 193 x10^3/uL (140-400); RED BLOOD COUNT 4.27 x10^6/uL (3.50-5.40); RED CELL DISTRIBUTION WIDTH 12.9 % (11.5-14.5); WHITE BLOOD COUNT 6.3 x10^3/uL (4.0-11.0)
[2021-10-09 18:28] LABS: CALCIUM 7.5 mg/dL (8.5-10.1); CREATININE 0.5 mg/dL (0.6-1.0); GFR 138.8; POTASSIUM 3.3 mmol/L (3.5-5.1)
[2021-10-09 18:34] LABS: ALBUMIN 2.5 g/dL (3.4-5.0); TOTAL BILIRUBIN 0.2 mg/dL (0.2-1.0); TOTAL PROTEIN 5.1 g/dL (6.4-8.2)
--- NOTE | 2021-10-09 18:37 | RAD ---
Exam: CT of abdomen and pelvis without contrast INDICATION: Abdominal pain, Back pain TECHNIQUE: Sequential axial images through the abdomen and pelvis obtained without IV contrast. Sagit julien and coronal reformatted images were reconstructed from the axial data and reviewed. Exposure: One or more of the following in the visualized dose reduction techniques were utilized for this examination: 1. Automated exposure control 2. Adjustment of the MA and/or KV according to patient size 3. Use of iterative of reconstructive technique Comparisons: 09/08/2018 FINDINGS: Heart size is normal. No pericardial effusion. Visualized lung bases are clear. No pleural effusion. Evaluation of solid organs limited secondary to noncontrast technique. Liver, spleen, pancreas, gallbladder and adrenals are unremarkable. No perinephric inflammation or hydronephrosis. No renal or ureteral calculi are identified. Bladder is partially distended and appears thin-walled. Uterus not enlarged. IUD noted in the uterus. No abnormal adnexal mass. Moderate amount of stool is noted throughout the colon. Appendix is normal. No free intra-abdominal a ir or fluid. No obstruction. Abdominal aorta has normal course and caliber. No enlarged intra-abdominal lymph nodes are identified. No suspicious osseous lesions or acute fractures. IMPRESSION: No acute process identified within the abdomen or pelvis Electronically signed by: Dc Melton MD (10/09/2021 6:35 PM) [facility]
[2021-10-09] MEDS ORDERED: POTASSIUM CHLORIDE 20 MEQ TABLET.ER. PO ONE (19:00)
[2021-10-09 19:30] LABS: BACTERIA,URINE 0 /HPF (0-FEW); CLARITY,URINE CLEAR; COLOR,URINE YELLOW; GLUCOSE,URINE NEG (NEG); NITRITE,URINE NEG (NEG); RBC,URINE OCC /HPF (0-2); SQUAMOUS EPITHELIAL CELL,UR OCC /LPF; UROBILINOGEN,URINE 0.2 mg/dL (0.2 mg/dL); WBC,URINE 0 /HPF (0-4)
[2021-10-09] MEDS ORDERED: MAGNESIUM OXIDE 400 MG TABLET PO ONE (19:30)
[2021-10-09] MEDS ORDERED: HYDR-2155 PO (19:44)
[2021-10-09] MEDS ORDERED: CALCIUM GLUCONATE 1,000 MG/10 ML VIAL IV ONE (19:45)
[2021-10-09 21:24] VITALS: BP 147/78
[2021-10-09] MEDS ORDERED: CALCITRIOL 0.25 MCG CAPSULE PO SCH (22:00)
[2021-10-10] MEDS ORDERED: CALCITRIOL 0.25 MCG CAPSULE PO SCH (09:00)
== END 2021-10-09 21:45 | disposition home or self-care (01) ==
LOC: ER 17:35
DX: R10.10 Upper abdominal pain, unspecified (principal); E87.6 Hypokalemia; E83.51 Hypocalcemia; E83.42 Hypomagnesemia
CPT/HCPCS: 36415; 74176; 80053; 81001; 83690; 83735; 85025; 93005; 96361; 96374; 96375; 96376; 99285; J0610; J1200; J2270; J2930; J3490; J7030

== ENCOUNTER 2021-10-15 14:15 | Emergency (ER) | payer SELFPAY ==
[~2021-10-15] VITALS: Ht 170.2 cm; Wt 127.5 kg
[~2021-10-15 14:15] MED LIST changes: +HYDR-2155 PO
[2021-10-15 14:42] VITALS: BP 147/78
--- NOTE | 2021-10-15 14:56 | PHYS DOC ---
Past History Past Medical History: Fibromyalgia, Other Additional Past Medical Histor: Tiburcio Baze. Past Surgical History: Other Alcohol Use: None Drug Use: None Adult General Chief Complaint Chief Complaint: MULTIPLE COMPLAINTS HPI HPI Patient is a [35] year old female who presents with [multiple complaints. She reports she has had some right upper quadrant abdominal discomfort for the last week, she states she has been dealing with this discomfort for the last several years, however over the last 3 months she has had worsening episodes. She reports she has not been able to eat anything without it coming back up shortly thereafter. She reports her symptoms seem to start after eating pork 1 week ago. She says she has had several prior episodes like this in the past. She reports she has seen her primary care provider, was given prescription for Zofran, however she reports this does not help her symptoms, and only helps them improve a little bit. She reports her primary care has never referred her to GI specialist for further evaluation. She states her pain today is an sharp stabbing pain that also feels extremities ripping apart from ribs, states it is located in her right upper quadrant. Nothing she does seems to make it better or worse. She has tried multiple [id number] medications including Tums, milk of magnesia, probiotics. She reports she has had constant diarrhea for the last week, she also reports being seen in this emergency room 1 week ago, and was told she was constipated at that time with a large amount of stool, however she does not believe this, she reports she has had the diarrhea multiple times daily for 3 weeks. She denies any blood in her stool. Denies any blood in her emesis. She denies any dizziness. She reports she is able to keep fluids down. She endorses no prior abdominal surgeries, reports her only surgeries are prior thyroidectomy. She reports she has been taking her medications as prescribed. Review of Systems Review of Systems Constitutional: Denies fever or chills [] Eyes: Denies change in visual acuity, redness, or eye pain [] HENT: Denies nasal congestion or sore throat [] states she does have a sore throat due to repeated vomiting Respiratory: Denies cough or shortness of breath [] Cardiovascular: No additional information not addressed in HPI [] GI: States she has had abdominal pain, diarrhea, nausea and vomiting : Denies dysuria or hematuria [] however does report it seems to be decreased as she has had decreased intake Musculoskeletal: Denies back pain or joint pain [] Integument: Denies rash or skin lesions [] Neurologic: Denies headache, focal weakness or sensory changes [] Endocrine: Denies polyuria or polydipsia [] All other systems were reviewed and found to be within normal limits, except as documented in this note. Allergies Allergies Allergies Coded Allergies Type Severity Reaction Last Updated Verified iodine Allergy Severe anaphalxysis 09/08/18 Yes Penicillins Allergy Unknown RASH 09/08/18 No Physical Exam Physical Exam Constitutional: Well developed, well nourished, no acute distress, non-toxic appearance. [] Tearful on exam HENT: Normocephalic, atraumatic, bilateral external ears normal, oropharynx moist, no oral exudates, nose normal. [] Eyes: PERRLA, EOMI, conjunctiva normal, no discharge. [] Neck: Normal range of motion, no tenderness, supple, no stridor. [] Cardiovascular:Heart rate regular rhythm, no murmur [] Lungs & Thorax: Bilateral breath sounds clear to auscultation [] Abdomen: Bowel sounds diminished. Soft, right upper and left upper tenderness, no masses, no pulsatile masses. [] Skin: Warm, dry, no erythema, no rash. [] Back: No tenderness, no CVA tenderness. [] Extremities: No tenderness, no cyanosis, no clubbing, ROM intact, no edema. [] Neurologic: Alert and oriented X 3, normal motor function, normal sensory function, no focal deficits noted. [] Psychologic: Affect normal, judgement normal, mood normal. [] Current Patient Data Vital Signs Vital Signs Date Time Temp Pulse Resp B/P (MAP) Pulse Ox O2 Delivery O2 Flow Rate FiO2 10/15/21 14:42 98.4 91 18 147/78 (101) 99 Lab Results Laboratory Tests Test 10/15/21 15:01 White Blood Count 7.8 x10^3/uL Red Blood Count 4.75 x10^6/uL Hemoglobin 14.2 g/dL Hematocrit 41.5 % Mean Corpuscular Volume 88 fL Mean Corpuscular Hemoglobin 30 pg Mean Corpuscular Hemoglobin Concent 34 g/dL Red Cell Distribution Width 12.7 % Platelet Count 252 x10^3/uL Neutrophils (%) (Auto) 52 % Lymphocytes (%) (Auto) 38 % Monocytes (%) (Auto) 8 % Eosinophils (%) (Auto) 1 % Basophils (%) (Auto) 1 % Neutrophils # (Auto) 4.1 x10^3uL Lymphocytes # (Auto) 2.9 x10^3/uL Monocytes # (Auto) 0.6 x10^3/uL Eosinophils # (Auto) 0.1 x10^3/uL Basophils # (Auto) 0.0 x10^3/uL Sodium Level 137 mmol/L Potassium Level 3.7 mmol/L Chloride Level 103 mmol/L Carbon Dioxide Level 26 mmol/L Anion Gap 8 Blood Urea Nitrogen 14 mg/dL Creatinine 0.8 mg/dL Estimated GFR (Cockcroft-Gault) 80.7 BUN/Creatinine Ratio 18 Glucose Level 94 mg/dL Lactic Acid Level 0.8 mmol/L Calcium Level 9.2 mg/dL Magnesium Level 2.0 mg/dL Total Bilirubin 0.5 mg/dL Aspartate Amino Transf (AST/SGOT) 19 U/L Alanine Aminotransferase (ALT/SGPT) 48 U/L Alkaline Phosphatase 75 U/L Total Protein 7.5 g/dL Albumin 3.4 g/dL Albumin/Globulin Ratio 0.8 Lipase 69 U/L Current Medications Medications (Trade) Dose Ordered Sig/Seamus Route PRN Reason Start Time Stop Time Status Last Admin Dose Admin Sodium Chloride 1,000 ml @ 1,000 mls/hr 1X ONCE IV 10/15/21 15:00 10/15/21 15:59 DC 10/15/21 15:05 Ketorolac Tromethamine (Toradol 15mg Vial) 15 mg 1X ONCE IVP 10/15/21 15:00 10/15/21 15:03 DC 10/15/21 15:05 Ondansetron HCl (Zofran) 4 mg 1X ONCE IVP 10/15/21 15:00 10/15/21 15:03 DC 10/15/21 15:05 EKG EKG [] Radiology/Procedures Radiology/Procedures [] Impressions: CT ABDOMEN+PELVIS WO History: Reason: RUQ pain / Spl. Instructions: / History: Technique: Noncontrast examination of the abdomen and pelvis. Coronal and sagittal reconstructions were performed. Exposure: One or more of the following individualized dose reduction techniques were utilized for this examination: 1. Automated exposure control 2. Adjustment of the mA and/or kV according to patient size 3. Use of iterative reconstruction technique. Comparison: October 09, 2021 Findings: Lower chest: No consolidation or pleural effusion. Abdomen and pelvis: Unremarkable noncontrast appearance of the liver, spleen, adrenal glands, and pancreas. Contraction of the gallbladder. No renal calculus. No hydronephrosis. No ureteral or urinary bladder calculus. Normal appendix. No evidence of bowel obstruction. No pathologic lymphadenopathy. No ascites. IUD within the upper endometrial canal. Bones: No pathologic osseous lesions. Impression: 1. No acute abdominal or pelvic pathology. Electronically signed by: Graham Horta DO (10/15/2021 3:58 PM) [facility] DICTATED AND SIGNED BY: GRAHAM HORTA DO DATE: 10/15/21 1553 Heart Score C/O Chest Pain: N/A Risk Factors: Risk Factors: DM, Current or recent (<one month) smoker, HTN, HLP, family history of CAD, obesity. Risk Scores: Risk Factors: DM, Current or recent (<one month) smoker, HTN, HLP, family history of CAD, obesity. Course & Med Decision Making Course & Med Decision Making Pertinent Labs and Imaging studies reviewed. (See chart for details) [] Patient well-appearing at this time, however tearful on exam. Reporting right upper quadrant abdominal pain for the 1 week. She reports she has had similar symptoms several times in the past, she has follow-up with primary care, however has never had a GI referral per patient. She is nontoxic at this time, however does appear uncomfortable, with tenderness noted on right upper quadrant as well as left upper quadrant tenderness. She appears nontoxic. Will evaluate for any gallstones, kidney stones, pancreatitis, any urinary complications. She has no shortness of breath, no coughing, no dyspnea. Lung sounds are clear and equal. Advised patient that she likely will need an upper GI and a colonoscopy at some point to further identify her ongoing GI, plans, advised patient we are unable to offer these today, however her primary care can set her up for referral, or we can place referral under discharge. Discussed lab and imaging results with patient without any acute abnormalities. Discussed importance of following up with primary care provider, referral to GI for further evaluation of her longstanding GI issues. She is agreeable to plan to try phenergan for her recurring nausea. Will provide prescription at this time. She understands the plan of care, she is agreeable with this with no further questions or concerns, but does report she is feeling a little bit better at this time. She had taken promethazine before without complications Piter Disclaimer Glennon Disclaimer This electronic medical record was generated, in whole or in part, using a voice recognition dictation system. Departure Departure: Impression: Primary Impression: Abdominal pain Additional Impression: Nausea & vomiting Disposition: HOME / SELF CARE / HOMELESS Condition: STABLE Referrals: MADELINE YOUNG (PCP) KRYSTEN DAO MD Patient Instructions: Abdominal Pain (Nonspecific) Additional Instructions: Continue to stay hydrated, try to eat small portions of food when you are able to Take the nausea medication as needed Contact your primary care provider for referral to a nurse transitional, or consider the one listed in your discharge paperwork. For your recurring abdominal discomfort, you may need to see a specialist to further manage and evaluate your symptoms Scripts Promethazine Hcl (PROMETHAZINE HCL) 12.5 Mg Tablet 1 TAB PO Q6HRS PRN for NAUSEA for 7 Days, #28 TAB 0 Refills Prov: TANK DUKES APRN 10/15/21 Problem Qualifiers Primary Impression: Abdominal pain Abdominal location: right upper quadrant Qualified Codes: R10.11 - Right upper quadrant pain Additional Impression: Nausea & vomiting Vomiting type: unspecified Qualified Codes: R11.2 - Nausea with vomiting, unspecified TANK DUKES APRN October 15, 2021 14:56
[2021-10-15] MEDS ORDERED: IV NORMAL SALINE 1,000ML 1,000 ML IV ONE (15:00)
[2021-10-15] MEDS ORDERED: ONDANSETRON PF 4 MG/2 ML VIAL. IVP ONE (15:00)
[2021-10-15] MEDS ORDERED: KETOROLAC 15 MG/ML VIAL. IVP ONE (15:00)
[2021-10-15 15:24] LABS: BASO % 1 % (0-3); EOS # 0.1 x10^3/uL (0.0-0.7); EOS % 1 % (0-3); HEMATOCRIT 41.5 % (36.0-47.0); HEMOGLOBIN 14.2 g/dL (12.0-15.5); LYMPH # 2.9 x10^3/uL (1.0-4.8); LYMPH % 38 % (24-48); MEAN CORPUSCULAR HEMOGLOBIN 30 pg (25-35); MEAN CORPUSCULAR HGB CONC 34 g/dL (31-37); MEAN CORPUSCULAR VOLUME 88 fL (79-100); MONO # 0.6 x10^3/uL (0.0-1.1); MONO % 8 % (0-9); NEUT # 4.1 x10^3uL (1.8-7.7); NEUT % 52 % (31-73); PLATELET COUNT 252 x10^3/uL (140-400); RED BLOOD COUNT 4.75 x10^6/uL (3.50-5.40); RED CELL DISTRIBUTION WIDTH 12.7 % (11.5-14.5); WHITE BLOOD COUNT 7.8 x10^3/uL (4.0-11.0)
[2021-10-15 15:43] LABS: CALCIUM 9.2 mg/dL (8.5-10.1); CREATININE 0.8 mg/dL (0.6-1.0); GFR 80.7; POTASSIUM 3.7 mmol/L (3.5-5.1)
[2021-10-15 15:49] LABS: ALBUMIN 3.4 g/dL (3.4-5.0); ALBUMIN/GLOBULIN RATIO 0.8 (1.0-1.7); TOTAL BILIRUBIN 0.5 mg/dL (0.2-1.0); TOTAL PROTEIN 7.5 g/dL (6.4-8.2)
--- NOTE | 2021-10-15 16:00 | RAD ---
CT ABDOMEN+PELVIS WO History: Reason: RUQ pain / Spl. Instructions: / History: Technique: Noncontrast examination of the abdomen and pelvis. Coronal and sagittal reconstructions we re performed. Exposure: One or more of the following individualized dose reduction techniques were utilized for thi s examination: 1. Automated exposure control 2. Adjustment of the mA and/or kV according to patient size 3. Use of iterative reconstruction technique. Comparison: October 09, 2021 Findings: Lower chest: No consolidation or pleural effusion. Abdomen and pelvis: Unremarkable noncontrast appearance of the liver, spleen, adrenal glands, and oliva creas. Contraction of the gallbladder. No renal calculus. No hydronephrosis. No ureteral or urinary b ladder calculus. Normal appendix. No evidence of bowel obstruction. No pathologic lymphadenopathy. No ascites. IUD wit hin the upper endometrial canal. Bones: No pathologic osseous lesions. Impression: 1. No acute abdominal or pelvic pathology. Electronically signed by: Graham Horta DO (10/15/2021 3:58 PM) [facility]
[2021-10-15] MEDS ORDERED: PROM12.58 PO (17:05)
== END 2021-10-15 17:13 | disposition home or self-care (01) ==
LOC: ER 14:15
DX: R10.11 Right upper quadrant pain (principal); R10.12 Left upper quadrant pain; R11.2 Nausea with vomiting, unspecified; R19.7 Diarrhea, unspecified; J02.9 Acute pharyngitis, unspecified; M79.7 Fibromyalgia; Z88.0 Allergy status to penicillin; Z88.8 Allergy status to other drugs, medicaments and biological substances
CPT/HCPCS: 36415; 74176; 80053; 83605; 83690; 83735; 85025; 96361; 96374; 96375; 99284; J1885; J2405; J7030